=== PATIENT | female | born 1945 | race Caucasian/White ===

== ENCOUNTER → 2017-11-23 | Outpatient (CLI) | payer MEDICARE, OTHER ==
--- NOTE | 2017-11-23 13:36 | US ---
EXAMINATION TYPE: US kidneys/renal and bladder DATE OF EXAM: 11/23/2017 COMPARISON: US 07/29/2015 CLINICAL HISTORY: N39.0 FREQ URINARY TRACT INFECTIONS. EXAM MEASUREMENTS: Right Kidney: 10.2 x 3.9 x 4.2 cm Left Kidney: 11.2 x 4.9 x 4.5 cm Post Void Residual Volume: 1.65 mL Right Kidney: No hydronephrosis or masses seen Left Kidney: No hydronephrosis or masses seen Bladder: Not fully distended- patient states she feels very full and has trouble holding her bladder. Bladder wall appears thickened, however this could be due to the fact that the bladder was not fully distended at the time of the exam. Bilateral Jets seen: No, however bladder not fully distended Normal Post Void Residual: Yes There is no evidence for hydronephrosis at this point in time. No nephrolithiasis is seen. No chrissy s are identified. IMPRESSION: Apparent urinary bladder wall thickening however the bladder is not ideally distended. Correlate clin ically.
== END ==
LOC: RADUSWWP 12:06
PROVIDERS: ATTEND Urology
DX: N32.89 Other specified disorders of bladder (principal)
CPT/HCPCS: 76770

== ENCOUNTER → 2017-12-03 | Outpatient (CLI) | payer MEDICARE, OTHER ==
[2017-12-03 15:02] LABS: Basophils # (A) 0.1 k/uL (0-0.2); Basophils % (A) 1 %; Eosinophils # (A) 0.3 k/uL (0-0.7); Eosinophils % (A) 3 %; HCT 40.6 % (34.0-46.0); HGB 13.6 gm/dL (11.4-16.0); Lymphocytes # (A) 2.4 k/uL (1.0-4.8); Lymphocytes % (A) 31 %; MCH 33.4 pg (25.0-35.0); MCHC 33.4 g/dL (31.0-37.0); MCV 99.7 fL (80.0-100.0); Mean Platelet Volume 7.2; Monocytes # (A) 0.4 k/uL (0-1.0); Monocytes % (A) 6 %; Neutrophils # (A) 4.3 k/uL (1.3-7.7); Neutrophils % (A) 57 %; Platelet Count 203 k/uL (150-450); RBC 4.07 m/uL (3.80-5.40); RDW 12.1 % (11.5-15.5); WBC 7.6 k/uL (3.8-10.6)
[2017-12-03 19:00] LABS: Erythrocyte Sedimentation Rate 9 mm/hr (0-20)
== END | disposition home or self-care (01) ==
LOC: LABWHC1 14:29
PROVIDERS: ATTEND Physical Medicine & Rehabilitation
DX: M47.27 Other spondylosis with radiculopathy, lumbosacral region (principal); M51.17 Intervertebral disc disorders with radiculopathy, lumbosacral region; M43.17 Spondylolisthesis, lumbosacral region; M70.61 Trochanteric bursitis, right hip; M47.814 Spondylosis without myelopathy or radiculopathy, thoracic region
CPT/HCPCS: 36415; 85025; 85652; 86140

== ENCOUNTER → 2019-08-07 | Outpatient (CLI) | payer MEDICARE, OTHER ==
[2019-08-07 18:18] LABS: Basophils % (A) 0 %; Eosinophils # (A) 0.3 k/uL (0-0.7); Eosinophils % (A) 4 %; HCT 37.7 % (34.0-46.0); HGB 12.9 gm/dL (11.4-16.0); Lymphocytes # (A) 1.9 k/uL (1.0-4.8); Lymphocytes % (A) 27 %; MCH 34.2 pg (25.0-35.0); MCHC 34.2 g/dL (31.0-37.0); MCV 100.1 fL (80.0-100.0); Mean Platelet Volume 6.8; Monocytes # (A) 0.3 k/uL (0-1.0); Monocytes % (A) 5 %; Neutrophils # (A) 4.3 k/uL (1.3-7.7); Neutrophils % (A) 62 %; Platelet Count 155 k/uL (150-450); RBC 3.77 m/uL (3.80-5.40); RDW 12.1 % (11.5-15.5)
[2019-08-07 19:57] LABS: Erythrocyte Sedimentation Rate 11 mm/hr (0-20)
[2019-08-08 01:31] LABS: African American GFR (CKD) 84.8 (60.0-200.0); Albumin 3.9 g/dL (3.80-4.90); Albumin/Globulin Ratio 1.95 (1.60-3.17); Anion Gap 8.2 mmol/L (4.00-12.00); BUN/Creat Ratio 26.25 Ratio (12.00-20.00); C Reactive Protein 0.4 mg/dL (0.0-0.8); Calcium 8.6 mg/dL (8.7-10.3); Carbon Dioxide 25.8 mmol/L (21.6-31.8); Potassium 4.3 mmol/L (3.5-5.5); Total Bilirubin 0.6 mg/dL (0.3-1.2); Total Protein 5.9 g/dL (6.2-8.2)
[2019-08-08 01:32] LABS: Folate, Serum 12.8 ng/mL
== END | disposition home or self-care (01) ==
LOC: LABWHC1 16:47
PROVIDERS: ATTEND Nurse Practitioner Family
DX: E55.9 Vitamin D deficiency, unspecified (principal); R53.83 Other fatigue; R53.1 Weakness
CPT/HCPCS: 36415; 80053; 82150; 82306; 82607; 82746; 83690; 84439; 84443; 85025; 85652; 86140

== ENCOUNTER 2020-07-24 09:42 | Day surgery (SDC) | payer MEDICARE, OTHER ==
[2020-07-19 10:20] VITALS: BMI 28.7
[~2020-07-24 09:42] MED LIST: LACTATED RINGERS 1,000 ML IV SCH; MIDAZOLAM 2 MG/2 ML VIAL IV PRN; ONDANSETRON 4 MG/2 ML VIAL IVP PRN; fentaNYL (PF) 50 MCG/ML 2 ML AMP IV PRN; fentaNYL (PF) 50 MCG/ML 2 ML AMP IVP PRN
[2020-07-24 10:47] VITALS: TEMP 97.8
[2020-07-24] MEDS ORDERED: LIDOCAINE 1% (10MG/ML) FOR IV START INTRADERMA ONE (10:51)
[2020-07-24] MEDS ORDERED: LIDOCAINE 1% INJ 10MG/ML (20 ML MDV) ONE (11:52)
[2020-07-24] MEDS ORDERED: PROPOFOL 10 MG/ML 20 ML VIAL IV ONE (11:52)
--- NOTE | 2020-07-24 12:16 | P.PCN ---
Date of Procedure: 07/24/20 Procedure(s) Performed: Brief history: Patient is a pleasant 75-year-old pleasant white female scheduled for an elective upper endoscopy as well as colonoscopy as a part of evaluation of GERD and screening for colorectal neoplasia Procedure performed: Esophagogastroduodenoscopy Colonoscopy Preoperative diagnosis: GERD Screening for colon cancer Anesthesia: MAC Procedure: After informed consent was obtained from the patient was brought into the endoscopy unit and IV sedation was administered by anesthesia under continuous monitoring. Initially upper endoscopy was done. The Olympus GF 160 video endoscope was inserted inserted into the mouth and esophagus intubated without any difficulty and was gradually advanced into the stomach and duodenum and carefully examined. The bulb and second part of the duodenum appeared normal. The scope was then withdrawn into the stomach adequately insufflated with air and upon careful examination the antrum had mild gastritis and biopsies were done from this area. The body, cardia and fundus appeared normal. The scope was then withdrawn into the esophagus. Small hiatal hernia noted. There were 2 linear erosions noted at the GE junction that was consistent with LA grade B reflux esophagitis. . Rest of the esophagus appeared normal. Patient tolerated the procedure well. At this time the patient continued to remain sedation. Initial digital rectal examination was normal. Olympus CF 160 video colonoscope was then inserted into the rectum and gradually advanced to the cecum without any difficulty. Careful examination was performed as the scope was gradually being withdrawn. The prep was excellent. The cecum, ascending colon, transverse colon, descending colon, sigmoid colon and rectum appeared normal. Diffuse diverticula cyst noted throughout the entire Retroflexion was performed in the rectum and no lesions were noted. Patient tolerated the procedure well. Impression: 1. Upper endoscopy revealed small sliding Hiatal hernia, LA grade B reflux esophagitis and mild gastritis 2. Colonoscopy revealed diffuse diverticulosis throughout the entire colon but no evidence of colorectal neoplasia Recommendations: Findings of this examination were discussed with the patient as well as her family. She was advised to follow with the biopsy results. She was advised to start on Prilosec 20 mg daily and follow antireflux measures. She will be seen in office in 3 months
[2020-07-24 12:20] VITALS: PULSE 67
[2020-07-24 12:47] VITALS: BP 145/84; RESP 20
== END 2020-07-24 13:07 | disposition home or self-care (01) ==
LOC: ORWHC2ENDO 09:42
PROVIDERS: ATTEND Internal Medicine Gastroenterology
DX: Z12.11 Encounter for screening for malignant neoplasm of colon (principal); K57.30 Diverticulosis of large intestine without perforation or abscess without bleeding; K29.50 Unspecified chronic gastritis without bleeding; K44.9 Diaphragmatic hernia without obstruction or gangrene; K22.10 Ulcer of esophagus without bleeding; K21.0 Gastro-esophageal reflux disease with esophagitis; I10 Essential (primary) hypertension; G47.33 Obstructive sleep apnea (adult) (pediatric); K85.90 Acute pancreatitis without necrosis or infection, unspecified; Z88.2 Allergy status to sulfonamides; Z99.89 Dependence on other enabling machines and devices; Z79.899 Other long term (current) drug therapy; Z79.1 Long term (current) use of non-steroidal anti-inflammatories (NSAID); Z90.49 Acquired absence of other specified parts of digestive tract
CPT/HCPCS: 88305; 43239; J2001; J2704; G0121; 45378

== ENCOUNTER → 2021-04-15 | Outpatient (CLI) | payer MEDICARE ==
[2021-04-15 09:16] LABS: HGB 14.6 gm/dL (11.4-16.0); MCH 32.6 pg (25.0-35.0); MCHC 33.1 g/dL (31.0-37.0); MCV 98.6 fL (80.0-100.0); Mean Platelet Volume 7.4; Platelet Count 189 k/uL (150-450); RBC 4.47 m/uL (3.80-5.40); WBC 7.9 k/uL (3.8-10.6)
[2021-04-15 10:33] LABS: Erythrocyte Sedimentation Rate 8 mm/hr (0-20)
== END | disposition home or self-care (01) ==
LOC: LABWHC1 07:58
PROVIDERS: ATTEND Ophthalmology
DX: G45.3 Amaurosis fugax (principal); M31.6 Other giant cell arteritis
CPT/HCPCS: 36415; 85027; 85652; 86140

== ENCOUNTER → 2021-07-09 | Outpatient (CLI) | payer MEDICARE ==
[2021-07-10 02:28] LABS: African American GFR (CKD) 72.5 (60.0-200.0); Anion Gap 11.4 mmol/L (4.00-12.00); BUN/Creat Ratio 22.22 Ratio (12.00-20.00); Calcium 9.5 mg/dL (8.7-10.3); Carbon Dioxide 24.6 mmol/L (21.6-31.8); Non-African American GFR(CKD) 62.5 (60.0-200.0); Potassium 4.2 mmol/L (3.5-5.5)
== END | disposition home or self-care (01) ==
LOC: LABWHC1 13:11
PROVIDERS: ATTEND Internal Medicine Interventional Cardiology
DX: I10 Essential (primary) hypertension (principal)
CPT/HCPCS: 36415; 80048

== ENCOUNTER → 2021-08-19 | Outpatient (CLI) | payer MEDICARE ==
[2021-08-19 18:27] LABS: Chol/HDL Ratio 5.05 Ratio; HDL Cholesterol 36.6 mg/dL (40.00-60.00); LDL Cholesterol,Calculated 114.2 mg/dL (0.0-131.0); VLDL Calculation 34.2 mg/dL (5.00-40.00)
== END | disposition home or self-care (01) ==
LOC: LABWHC1 09:53
PROVIDERS: ATTEND Internal Medicine Interventional Cardiology
DX: E78.5 Hyperlipidemia, unspecified (principal)
CPT/HCPCS: 36415; 80061; 84450; 84460

== ENCOUNTER → 2021-09-08 | Outpatient (CLI) | payer MEDICARE, OTHER ==
[2021-09-08 21:06] LABS: Chol/HDL Ratio 3.22 Ratio; HDL Cholesterol 39.8 mg/dL (40.00-60.00); VLDL Calculation 34.2 mg/dL (5.00-40.00)
== END | disposition home or self-care (01) ==
LOC: LABWHC1 09:42
PROVIDERS: ATTEND Nurse Practitioner
DX: E78.00 Pure hypercholesterolemia, unspecified (principal)
CPT/HCPCS: 36415; 80061

== ENCOUNTER → 2021-10-16 | Outpatient (CLI) | payer MEDICARE, OTHER ==
--- NOTE | 2021-10-16 15:53 | US ---
EXAMINATION TYPE: US kidneys/renal and bladder DATE OF EXAM: 10/16/2021 COMPARISON: NONE CLINICAL HISTORY: 76-year-old female I10 Essential Hypertension. HTN, History of UTI no current sympt oms TECHNIQUE: Multiple sonographic images of the kidneys and bladder are obtained. FINDINGS: EXAM MEASUREMENTS: Right Kidney: 11.6 x 6.1 x 5.3 cm Left Kidney: 11.5 x 4.9 x 4.8 cm No hydronephrosis. Bladder: Underdistention of the bladder limits its evaluation. Bilateral Jets seen: Yes IMPRESSION: No hydronephrosis.
== END | disposition home or self-care (01) ==
LOC: RADUSWWP 10:58
PROVIDERS: ATTEND Internal Medicine Interventional Cardiology
DX: I10 Essential (primary) hypertension (principal); Z87.440 Personal history of urinary (tract) infections
CPT/HCPCS: 76770

== ENCOUNTER → 2021-10-22 | Outpatient (CLI) | payer MEDICARE, OTHER ==
[2021-10-22 16:47] LABS: Blood Urea Nitrogen 13.5 mg/dL (9.0-27.0); Calcium 8.8 mg/dL (8.7-10.3); Carbon Dioxide 25.7 mmol/L (20.0-27.5); Chloride 106 mmol/L (96-109); Chol/HDL Ratio 2.87 Ratio; Glucose 93 mg/dL (70-110); Non-African American GFR(CKD) 75.9 (60.0-200.0); Potassium 4.1 mmol/L (3.5-5.5); Sodium 141 mmol/L (135-145)
== END | disposition home or self-care (01) ==
LOC: LABWHC1 08:37
PROVIDERS: ATTEND Nurse Practitioner
DX: I10 Essential (primary) hypertension (principal); E78.5 Hyperlipidemia, unspecified
CPT/HCPCS: 36415; 80048; 80061

== ENCOUNTER → 2022-01-12 | Outpatient (CLI) | payer MEDICARE, OTHER ==
--- NOTE | 2022-01-12 10:59 | CT ---
EXAMINATION TYPE: CT chest wo con DATE OF EXAM: 01/12/2022 COMPARISON: Chest radiograph 07/29/2015 HISTORY: 77-year-old female R06.2, wheezing TECHNIQUE: Contiguous axial scanning of the chest without IV contrast. Coronal and sagittal reconstru ctions performed. CT DLP: 712 mGycm Automated exposure control for dose reduction was used. FINDINGS: Heart normal size without pericardial effusion. Mild atherosclerotic arch calcifications with conventional branching anatomy. No thoracic lymphadenopathy by CT size criteria. Normal variant azygos fissure. Some minimal strandy atelectasis in the lower lungs. No consolidation or pleural effusion. Tiny hiatal hernia. Visualized upper abdomen shows cholecystectomy clips and scattered mild to moder ate atherosclerotic calcifications along with colonic diverticulosis. Bones: Old left posterior fracture deformities. Moderate to advanced degenerative disc disease mid to lower thoracic spine. Anterior wedging T7 age indeterminate but new from 07/29/2015 chest radiograph. Suspected chronic injury given the lack of any paravertebral soft tissue swelling. IMPRESSION: 1. Normal variant azygous fissure. Minimal strandy atelectasis in the lower lungs. No acute pulmonary process seen. 2. Tiny hiatal hernia and colonic diverticulosis incidentally noted in the upper abdomen. 3. Moderately advanced degenerative disc disease. Anterior wedge deformity of T7 is new from 2015 but still suspected to be chronic. Clinically correlate.
== END ==
LOC: RADCTMAIN 09:44
PROVIDERS: ATTEND Internal Medicine Pulmonary Disease
DX: J98.11 Atelectasis (principal); K44.9 Diaphragmatic hernia without obstruction or gangrene; K57.30 Diverticulosis of large intestine without perforation or abscess without bleeding
CPT/HCPCS: 71250

== ENCOUNTER → 2022-04-15 | Outpatient (CLI) | payer MEDICARE, OTHER ==
[2022-04-15 13:17] VITALS: BP 144/79; PULSE 72; RESP 14; TEMP 98.2
--- NOTE | 2022-04-15 13:19 | P.PAINPG ---
Objective - Vital Signs Vital signs: Intake & Output 04/14/22 04/15/22 04/15/22 18:59 06:59 18:59 Weight 90.718 kg PQRS Measure Charge Sheet Comment: HISTORY OF PRESENT ILLNESS: 77 yr old female as a referral from Dr. Crockett presents today with severe and chronic LBP secondary to spondylosis, scoliosis, spinal stenosis, disc bulges and facet arthropathy for evaluation. Pt states her pain level is 7/10 in intensity, sharp, shooting from the lower aspect of her lumbar spine to the bilateral lower extremities. Pain is provoked with standing from a sitting position or walking for periods of 15 minutes or more. Pain is relieved with medications (ibuprofen, Lyons), topicals, history of LESIs RFA in the past, ice and heat daily, physical therapy over 1 year ago, massage therapy once a month, repositioning and laying supine. Past Medical History: GERD, HTN, OA, MVP, MDD/ Anxiety Past Surgical History: Appendectomy, Bowel Resection, Cholecystectomy, Hysterectomy, BL Knee Arthroscopy x 2, BL Knee Surgery x 2 Social History: Negative x 3. Family History: Mother- DM. Father- CHF, [place]. All: Sulfa Meds: See list REVIEW OF ORGAN SYSTEMS: CONSTITUTIONAL: No fevers or chills. No recent weight loss. HEENT: No visual acuity loss, eye pain, difficulties with hearing. No nosebleeds. No difficulty swallowing. RESPIRATORY: Denies any troubles with breathing or dyspnea on exertion. CARDIOVASCULAR: Denies any chest pain, palpitations, or recent heart attacks. GASTROINTESTINAL: Denies fatty food intolerance. Has change in bowel habits and gas bloat. GENITOURINARY: Denies any blood in urine. Has increased urinary frequency. NEUROLOGICAL: + numbness and tingling along the distal extremities. No seizure disorders or headaches. MUSCULOSKELETAL: + back pain SKIN: No skin cancer. No rash. PSYCHIATRIC: Denies current depression or suicidal thoughts. ENDOCRINE: Denies current thyroid disorders. Denies any blood sugar glucose intolerance. HEME/LYMPHATIC: Denies any lumps and bumps around the neck. History of deep venous thrombosis. ALLERGY/IMMUNOLOGY: No immunoglobulin therapy. No immune deficiencies. BREAST: Denies current breast lumps, pain or nipple discharge. Physical Examinations : Constitutional : Cooperative , not in acute distress . HEENT: Neck supple. No Lymphadenopathy. Normal thyroid size . Eyes no ptosis , no icterus, no photophobia . Hearing intact. Normal oropharynx. No Thrush. Respiratory : Chest clear to auscultations bilaterally. No wheezing. No rhonchi. Cardiovascular : Regular rate and rhythm , S1 / S2. No S3 . No S4. Gastrointestinal : Abdomen soft. No tenderness. Bowel sounds x 4. No organomegaly . Genitourinary : Deferred. Neurologic : Cranial nerve II to XII intact. No focal neurological deficits. Psychiatric : alert & oriented x 3. Matching mood & appropriate affect. Judgment & insight intact. Lymphatic No Lymphadenopathy. Musculoskeletal : Cervical Spine Motor strength in the deltoid and biceps: Normal right side. Normal Left side Motor strength biceps and the wrist extensors: Normal right side . Normal left side Motor strength in the triceps muscle: Normal right side. Normal left side Deep tendon reflexes: Normal at the biceps. Normal at Brachioradialis. Normal at triceps Cervical facet loading test: positive bilaterally Spurling test: positive bilaterally Neck distraction test: positive bilaterally [place] sign: positive bilaterally Lumbar spine Motor strength lower extremities ,thigh and legs 5/5 Right side , 5/5 Left side Deep tendon reflexes : Normal Knee Jerk. Normal Ankle Jerk Vertebral body tenderness over Lumbar facet Loading Test: positive Right / positive Left with jump reflex Range of motion of the lumbar spine Flexion 30 degrees, extension 10 degrees Straight Leg Raise test: Left/ Right positive at degree Efrain test: positive right / positive left. Severe tenderness over the Sacroiliac joint on the Right / Left sides Gaenslen test: positive bilaterally Seated flexion test: positive bilaterally. Sacral spine : Severe tenderness over the Sacroiliac joint: right side / left side Range of motion: Flexion of the lumbar spine <60 degrees Range of motion: Extension of the lumbar spine <20 degrees Gaenslen's Test positive Ger's Test positive Efrain test: positive right side / left side Thigh Thrust Test Sacral Thrust Test Imaging: MRI without contrast of the lumbar spine from 02/25/22 reviewed Assessment/ Plan : Lumbar level scoliosis, lumbar stenosis, lumbar facet arthropathy Recommendation of BL RFA L4- L5, L5-S1. We will obtain records of prior RFA from [facility] when the procedure was performed by Dr Whatley. Risks, benefits of procedure discussed and patient verbalized understanding. Denies aspirin or anti- coagulant use or medical history of diabetes. All questions answered. I have spent greater than 50 minutes on patient care today. Dr Sorto was available by phone for the evaluation of this patient. The time was used to review the medical records including relevant urine studies and Prescription history (MAPs), review of the available imaging, evaluation and examination of the patient, coordination of care with the medical staff and if applicable referring physicians, as well as creation of the medical record PQRS Narrative: Smoking Status Never smoker Pain Intensity [Lower Back] 9 Scale Used Numeric (1 - 10) Hx Alcohol Use (MH) Yes Home Medications: Ambulatory Orders Metoprolol Tartrate [Lopressor] 25 mg PO BID 07/19/20 Atorvastatin [Lipitor] 10 mg PO DAILY 04/14/22 DULoxetine HCL [Cymbalta] 60 mg PO DAILY 04/14/22 Losartan Potassium 100 mg PO DAILY 04/14/22 Sertraline HCl [Zoloft] 150 mg PO DAILY 04/14/22 hydrALAZINE HCL 50 mg PO BID 04/14/22 Controlled Substance Measures - Controlled Substance Measures Is patient prescribed a controlled substance at discharge?: No
== END ==
LOC: PNWHC3 12:45
PROVIDERS: ATTEND Specialist
DX: M51.36 Other intervertebral disc degeneration, lumbar region (principal); M51.26 Other intervertebral disc displacement, lumbar region; M41.9 Scoliosis, unspecified; M48.062 Spinal stenosis, lumbar region with neurogenic claudication; M47.816 Spondylosis without myelopathy or radiculopathy, lumbar region; I10 Essential (primary) hypertension; M19.90 Unspecified osteoarthritis, unspecified site; F41.9 Anxiety disorder, unspecified; Z88.2 Allergy status to sulfonamides
CPT/HCPCS: 99211

== ENCOUNTER → 2022-05-08 | Outpatient (CLI) | payer MEDICARE, OTHER ==
[2022-05-08 14:48] LABS: Basophils # (A) 0.03 X 10*3/uL (0.00-0.10); Basophils % (A) 0.3 %; Eosinophils # (A) 0.23 X 10*3/uL (0.04-0.35); Eosinophils % (A) 2.4 %; HCT 36.1 % (37.2-46.3); HGB 11.3 g/dL (12.0-15.0); Immature Grans, Automated 0.4 %; Lymphocytes # (A) 1.39 X 10*3/uL (0.90-5.00); Lymphocytes % (A) 14.5 %; MCH 31.6 pg (27.0-32.0); MCHC 31.3 g/dL (32.0-37.0); MCV 100.8 fL (80.0-97.0); Mean Platelet Volume 9.7 fL (9.5-12.2); Monocytes # (A) 0.77 X 10*3/uL (0.20-1.00); Monocytes % (A) 8.1 %; NRBC Per 100 WBC 0 /100 WBCS (0.0-0.0); Neutrophils % (A) 74.3 %; Platelet Count 208 X 10*3/uL (140-440); RBC 3.58 X 10*6/uL (4.10-5.20); RDW 12.7 % (11.5-14.5); WBC 9.56 X 10*3/uL (4.50-10.00)
[2022-05-08 14:53] LABS: Erythrocyte Sedimentation Rate 15 mm/Hr (0-30)
[2022-05-08 17:22] LABS: Rheumatoid Factor, Qnt <10 IU/mL (0-15)
[2022-05-08 17:28] LABS: ALT 19 U/L (8-44); AST 22 U/L (13-35); African American GFR (CKD) 97.5 (60.0-200.0); Albumin 3.8 g/dL (3.8-4.9); Albumin/Globulin Ratio 1.58 (1.60-3.17); Alkaline Phosphatase 110 U/L (41-126); BUN/Creat Ratio 21.43 Ratio (12.00-20.00); Calcium 8.9 mg/dL (8.7-10.3); Carbon Dioxide 24.4 mmol/L (20.0-27.5); Chloride 102 mmol/L (96-109); Creatine Kinase 66 U/L (26-186); Globulin 2.4 g/dL (1.6-3.3); Glucose 96 mg/dL (70-110); Non-African American GFR(CKD) 84.2 (60.0-200.0); Potassium 4.3 mmol/L (3.5-5.5); Sodium 137 mmol/L (135-145); Total Protein 6.2 g/dL (6.2-8.2); Uric Acid 3.5 mg/dL (2.9-7.7)
[2022-05-09 11:07] LABS: HLA B27 NEGATIVE
[2022-05-11 14:41] LABS: Lyme IgG/IgM 0.04 Index
== END | disposition home or self-care (01) ==
LOC: LABWHC1 09:53
PROVIDERS: ATTEND Family Medicine
DX: M79.7 Fibromyalgia (principal); M43.16 Spondylolisthesis, lumbar region; M43.10 Spondylolisthesis, site unspecified; N39.498 Other specified urinary incontinence
CPT/HCPCS: 36415; 80053; 82550; 84443; 84550; 85025; 85652; 86038; 86140; 86431; 86618; 86812

== ENCOUNTER 2022-05-15 06:04 | Day surgery (SDC) | payer MEDICARE, OTHER ==
[2022-05-13 16:32] VITALS: BMI 28.7
[2022-05-15] MEDS ORDERED: LACTATED RINGERS 1,000 ML IV ONE ×2 (07:00)
[2022-05-15 07:01] VITALS: TEMP 98.2
[2022-05-15] MEDS ORDERED: ROPIVACAINE 5MG/ML 20ML VIAL ONE (07:07)
[2022-05-15] MEDS ORDERED: TRIAMCINOLONE ACETONIDE 40 MG/ML 1 ML VIAL ONE (07:07)
[2022-05-15] MEDS ORDERED: fentaNYL (PF) 50 MCG/ML 2 ML AMP ONE (07:07)
[2022-05-15] MEDS ORDERED: MIDAZOLAM 2 MG/2 ML VIAL ONE (07:07)
[2022-05-15] MEDS ORDERED: LACTATED RINGERS 1,000 ML IV SCH (07:15)
--- NOTE | 2022-05-15 07:32 | P.PCN ---
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 Procedure: Right side L4-5 radiofrequency thermocoagulation of medial branch under fluoroscopic guidance right side L5-S1 dorsal ramus radiofrequency th ermocoagulation under fluoroscopic guidance Surgeon: Melecio Dempsey Anesthesia: Local: 1% Lidocaine, IV sedation : Midazolam 2 mg, and fentanyl 100 micrograms. Complications: None Estimated blood loss: None. Specimen removed: None Fluoroscopic image: Saved to patient electronic medical records. Indications for Procedure: The patient is well known to pain clinic for his chronic low back pain management. The lumbar facet loading test was positive with a clinical diagnosis of lumbar facet arthropathy. Patient had marked decrease in pain after the diagnostic medial branch procedure. Came here for radiofrequency ablation for longer pain relief. PROCEDURE DESCRIPTION: The patient was seen and identified in the preoperative area. Risks, benefits, complications, and alternatives were discussed with the patient. The patient agreed to proceed with the procedure and signed the consent. IV was started. Vital signs were stable. Patient was taken to the procedure room and timeout was completed. The patient was placed in the prone position on procedure table and a pillow was placed under the abdomen to reduce lumbar lordosis. The lumbosacral area was prepped and draped in the usual sterile fashion. Critical pause was taken. Vital signs were closely monitored during the procedure. The fluoroscopic camera was placed in the anteroposterior position to identify the junction of superior articular process and its corresponding injection with its transverse process of L4, L5, S1, which were anesthetized with 1% lidocaine. We used 18-gauge 100-mm curved, sharp radiofrequency cannula with 10- mm active tip for the procedure. The first cannula was guided by fluoroscopy to the S1 superior articular process and its corresponding junction with its ala. The second cannula was guided by fluoroscopy into the L5 superior articular process and its corresponding junction with its transverse process and pedicle. The third cannula was guided by fluoroscopy into the L4 SAP and its corresponding junction with its transverse process and its pedicle. After confirmation of needle tip position on oblique view, , and lateral view each site underwent motor testing at 2 Hz and 0 to 2.5 volts, and there was good motor stimulation in the back and no radicular symptoms or paresthesias. After confirmation of motor testing, 0.5 mL of block solution injected at each site . Block solution contained 3 mL of 0.5% ropivacaine preservative free mixed with 40 MG of Kenalog. At this time, each site was ablated using continuous radiofrequency mode at 80 degrees Celsius for 90 seconds at each level. At the end of the procedure, each needle was retracted approximately 1 cm and the skin was infiltrated with 0.5% ropivacaine preservative free 1 ml at each site. Skin was cleansed and bandages were applied. Disposition : The patient tolerated the procedure very well. The patient was transferred to the recovery room and remained stable until discharged home. The patient was given detailed discharge instructions for infection, bleeding, and increased pain at the injection site, and was advised to seek immediate medical attention should significant side effects develop. The patient will be scheduled with Pain Clinic within 4 weeks.
[2022-05-15] MEDS ORDERED: IV FLUID CONTINUATION 1,000 ML IV ONE (07:35)
--- NOTE | 2022-05-15 07:56 | FL ---
Intraoperative/procedural fluoroscopic services were provided. Total fluoroscopy time is 7 seconds wi th a total of 4 submitted images to PACS. Please see the operative/procedural note for further detail s.
[2022-05-15 07:57] VITALS: BP 124/73; PULSE 75; RESP 18
== END 2022-05-15 08:15 | disposition home or self-care (01) ==
LOC: ORPAIN 06:04
DX: M47.816 Spondylosis without myelopathy or radiculopathy, lumbar region (principal); G89.29 Other chronic pain; Z88.2 Allergy status to sulfonamides; I10 Essential (primary) hypertension; E78.00 Pure hypercholesterolemia, unspecified; G47.33 Obstructive sleep apnea (adult) (pediatric); K21.9 Gastro-esophageal reflux disease without esophagitis; E78.5 Hyperlipidemia, unspecified; Z79.899 Other long term (current) drug therapy; Z83.3 Family history of diabetes mellitus; Z82.49 Family history of ischemic heart disease and other diseases of the circulatory system; Z80.8 Family history of malignant neoplasm of other organs or systems
CPT/HCPCS: 64635; 64636; J2250; J3301; J3010; J2795

== ENCOUNTER → 2023-08-31 | Day surgery (SDC) | payer MEDICARE, OTHER ==
[2023-08-27 13:59] VITALS: BMI 29.0
[~2023-08-31] MED LIST changes: +LIDOCAINE 1% (10MG/ML) FOR IV START INTRADERMA PRN; -MIDAZOLAM 2 MG/2 ML VIAL IV PRN; -ONDANSETRON 4 MG/2 ML VIAL IVP PRN; +PROPOFOL 10 MG/ML 20 ML VIAL IV ONE; -fentaNYL (PF) 50 MCG/ML 2 ML AMP IV PRN; -fentaNYL (PF) 50 MCG/ML 2 ML AMP IVP PRN
[2023-08-31 07:41] VITALS: TEMP 96.8
--- NOTE | 2023-08-31 08:16 | P.PCN ---
Date of Procedure: 08/31/23 Procedure(s) Performed: BRIEF HISTORY: Patient is a 78-year-old pleasant white female scheduled for an elective colonoscopy as a part of screening for colon cancer. PROCEDURE PERFORMED: Colonoscopy With snare polypectomy PREOPERATIVE DIAGNOSIS: Screening for colon cancer. IV sedation per Anesthesia. PROCEDURE: After informed consent was obtained, the patient, was brought into the endoscopy unit. IV sedation was administered by Anesthesia under continuous monitoring. Digital rectal examination was normal. Initially the Olympus CF-160 flexible video colonoscope was then inserted in the rectum, gradually advanced into the cecum without any difficulty. Careful examination was performed as the scope was gradually being withdrawn. Ileocecal valve and the appendiceal orifice were visualized and appeared normal. Prep was excellent. Mucosa of the cecum, ascending colon, transverse colon, descending colon, sigmoid colon, and rectum appeared normal. In the rectum there was a 5mm polyp that was removed by snare polypectomy. Scattered diffuse diverticula seen. Retroflexion was performed in the rectum and no lesions were seen. The patient tolerated the procedure well. IMPRESSION: 5 mm rectal polyp status post cold snare polypectomy Diffuse scattered diverticulosis RECOMMENDATIONS: Findings of this examination were discussed with the patient as well as her family. She was advised to follow with the biopsy results. If the biopsy result she can have a repeat colonoscopy in 5 years.
[2023-08-31 08:49] VITALS: BP 140/68; PULSE 52; RESP 14
== END ==
LOC: ORWHC2ENDO 06:41
PROVIDERS: ATTEND Internal Medicine Gastroenterology
DX: Z12.11 Encounter for screening for malignant neoplasm of colon (principal); D12.8 Benign neoplasm of rectum; K57.30 Diverticulosis of large intestine without perforation or abscess without bleeding; I10 Essential (primary) hypertension; E78.5 Hyperlipidemia, unspecified; I34.1 Nonrheumatic mitral (valve) prolapse; F41.9 Anxiety disorder, unspecified; M79.10 Myalgia, unspecified site; K21.9 Gastro-esophageal reflux disease without esophagitis; Z79.83 Long term (current) use of bisphosphonates; Z79.891 Long term (current) use of opiate analgesic; Z79.899 Other long term (current) drug therapy; Z98.890 Other specified postprocedural states
CPT/HCPCS: 88305; 45385; J2704

== ENCOUNTER → 2024-04-11 | Outpatient (CLI) | payer MEDICARE, OTHER ==
[2024-04-11 15:15] LABS: C Reactive Protein <0.30 mg/dL (0.00-0.80); Chol/HDL Ratio 2.22 Ratio; LDL Cholesterol,Calculated 49.7 mg/dL (0.0-131.0)
== END | disposition home or self-care (01) ==
LOC: LABWHC1 11:09
PROVIDERS: ATTEND Internal Medicine Interventional Cardiology
DX: G45.3 Amaurosis fugax (principal); G43.B0 Ophthalmoplegic migraine, not intractable
CPT/HCPCS: 36415; 80061; 85652; 86140

== ENCOUNTER → 2024-05-10 | Outpatient (CLI) | payer MEDICARE, OTHER ==
--- NOTE | 2024-05-11 11:38 | XR ---
EXAMINATION TYPE: XR ribs LT DATE OF EXAM: 05/10/2024 COMPARISON: 07/29/2015 HISTORY: 79-year-old female S20.212A CONTUSION RIBS LEFT SIDE TECHNIQUE: 4 views FINDINGS: Normal variant azygous fissure. Patchy interstitial changes are present in the left lung. P ossible trace left effusion. No displaced left rib fractures seen. However, there is some irregularit y of the left posterior seventh and eighth ribs. IMPRESSION: 1. Some cortical irregularity of the left posterior seventh and eighth ribs suggests age indeterminat e nondisplaced fractures. Correlate for any point tenderness. No displaced rib fracture seen. 2. Patchy interstitial opacities in the left lung with possible trace left effusion. Correlate to exc lude any underlying infectious/inflammatory etiology or interstitial edema.
== END | disposition home or self-care (01) ==
LOC: RADXRMAIN 14:49
PROVIDERS: ATTEND Family Medicine
DX: S20.212A Contusion of left front wall of thorax, initial encounter (principal)

== ENCOUNTER → 2024-07-13 | Outpatient (CLI) | payer MEDICARE, OTHER ==
[2024-07-13 15:58] VITALS: BP 164/80; PULSE 57; RESP 16; TEMP 97.9
--- NOTE | 2024-07-13 16:49 | P.SLEEP ---
History of Present Illness DATE: 07/13/2024 CONSULTATION/NEW PATIENT EVALUATION HISTORY OF PRESENT ILLNESS/SLEEP-WAKE EVALUATION: 79-year-old lady had been e valuated in the sleep center for possible obstructive sleep apnea hypopnea syndrome. Patient has history of obstructive sleep apnea first diagnosed about 10 years ago. Patient was on treatment with CPAP and about 2 years ago stopped treatment, presently using oxygen at night 2 L/min. SLEEP SCHEDULE: Usually sleep schedule from around 10 PM to 5 AM. FALLING ASLEEP: Patient has difficulties with the falling asleep, using Xanax at bedtime to help falling asleep. DURING SLEEP: Presently patient is on oxygen supplement 2 L/min. She sleeps by herself, so she does not know about snoring at the present time. She wakes up about 3 times from sleep and has difficulties to initiate sleep again. Positive history of nocturia, grinding teeth, dry mouth, episodes of palpitation, sweating, restless leg symptoms no history of hypnogogical hallucinations, sleep paralysis, or cataplexy. DURING THE DAY/WAKE STATE: In the morning patient wake up tired, has difficulties to pay attention, falling asleep during the day, has problems with memory, concentration, irritability, depression. [place] sleepiness scale is increased to 10. Patient may take up to 3 naps a day. PAST MEDICAL HISTORY: Hypertension, mitral valve prolapse, arthritis, acid reflux. PAST SURGICAL HISTORY: Surgical treatment for basal cell carcinoma of the skin, gastric resection, others please see below. MEDICATIONS: Please see below. SOCIAL HISTORY: Please see below. FAMILY HISTORY: Heart problems, diabetes, acid reflux. REVIEW OF SYSTEMS: Multiple awakenings from sleep, sleepiness during the day. No fevers. No double vision. No recent chest pain. No shortness of breath. No abdominal pain. No bleeding episodes. No blood in urine. No seizure episodes. PHYSICAL EXAMINATION: GENERAL: A pleasant patient without any distress. VITAL SIGNS: Please see below. HEENT: PERRLA, EOMI. Evaluation of oropharynx showed tongue protrudes midline, low position of soft palate Mallampati 2, but short distance between soft palate and posterior pharyngeal wall. NECK: Supple. No JVD. Thyroid is not palpable. 15.5 inches in circumference. LUNGS: Clear to percussion and to auscultation. Good air exchange. No wheezing or rhonchi. HEART: S1, S2 regular. No murmurs, gallops or rubs. ABDOMEN: Soft and nontender. Bowel sounds are present. No organomegaly appreciated. EXTREMITIES: No clubbing or cyanosis. DISULFURIZER TENDER: Awake, alert, and oriented x3. Cranial nerves 2 to 7 intact. There is no fasciculation or atrophy noted. No focal deficits observed. ASSESSMENT: 1. Multiple awakenings from sleep, short distance between soft palate and posterior pharyngeal wall, episodes of choking, sleepiness during the day with [place] Sleepiness Scale 10, history of obstructive sleep apnea in the past. Obstructive sleep apnea hypopnea syndrome. 2. Hypertension. 3. Hyperlipidemia. 4. Mitral valve prolapse. 5 acid reflux. 6 . Restless leg symptoms. 7. Arthritis. 8. Mild obesity, BMI's index 32.7. 9 . Insomnia with difficulties to initiate sleep. 10. Status post gastric resection in 2000. 11. Status post knee replacement. 12. Status post shoulder surgery. PLAN: 1. Polysomnography for evaluation of patient's breathing during sleep. 2. Following plan after reading sleep study. 3. Preferable position during sleep on the side. 4. No driving if patient feels any sleepiness. Patient is aware of civil and criminal liability for unsafe driving. 5. Sleep hygiene with regular sleep time for at least 7.5-8 hours. 6. Watching weight. Thank you very much for referring this patient for consultation. Sincerely, Dima Ball MD, PhD, FAASM. Diplomat of [place] [employer], Sleep Medicine Board by [place] [employer] [place] [employer] [facility] [place] cc: Blake Gutierres MD, Brian Mantilla MD Past Medical History Past Medical History: Cancer, GERD/Reflux, Hyperlipidemia, Hypertension, Mitral Valve Prolapse (MVP), Sleep Apnea/CPAP/BIPAP Additional Past Medical History / Comment(s): Occasional irregular heart beat, skin cancer, back pain, Hx of diverticulosis with bowel resection, , uses 2L of O2 at night, hx pancreatitis, states urgency with bowel/bladder movements, varicose veins. polymyalgia, firbromyalgia, rheumatoid arthritis, insomnia, ulcers, mitral valve prolaspe, restless legs and body. History of Any Multi-Drug Resistant Organisms: None Reported Past Surgical History: Appendectomy, Bowel Resection, Cholecystectomy, Hysterectomy, Joint Replacement, Orthopedic Surgery Additional Past Surgical History / Comment(s): BILATERAL KNEE ARTHROSCOPY X2 AND OPEN X2, LEFT TOTAL KNEE REPLACEMENT.scraped cornea, and cataract surgery, gastric resection, bilateral shoulder surgery, l thumb joint replaced, and ruptured tendon - r hand. Past Anesthesia/Blood Transfusion Reactions: Family History of Problems w/ Anesthesia Additional Past Anesthesia/Blood Transfusion Reaction / Comment(s): MOTHER - PONV. no blood transfusion Past Psychological History: Anxiety, Depression Additional Psychological History / Comment(s): "Mild depression". Smoking Status: Never smoker Past Alcohol Use History: Occasional Past Drug Use History: Marijuana Additional Drug Use History / Comment(s): OCCASIONAL CBD OIL, "NONE IN QUITE A WHILE, DIDN'T WORK FOR ME".has not done for a year - Past Family History Mother Family Medical History: Diabetes Mellitus, Hyperlipidemia Additional Family Medical History / Comment(s): acid reflux Father Family Medical History: Cancer, Congestive Heart Failure (CHF), GERD/Reflux, Hyperlipidemia, Hypertension, Myocardial Infarction (FL) Additional Family Medical History / Comment(s): SKIN CANCER, angina, snoring, (brother had [place] also), Medications and Allergies Home Medications Medication Instructions Recorded Confirmed Type Metoprolol Tartrate [Lopressor] 25 mg PO BID 07/19/20 07/13/24 History Atorvastatin [Lipitor] 10 mg PO HS 04/14/22 07/13/24 History Losartan Potassium 50 mg PO DAILY 04/14/22 07/13/24 History hydrALAZINE HCL 50 mg PO BID 04/14/22 08/27/23 History HYDROcodone/APAP 10-325MG [Vinson 1 tab PO BID PRN 05/13/22 08/27/23 History 10-325] HYDROcodone/APAP 5-325MG [Vinson 1 tab PO DIRECTED PRN 05/13/22 08/27/23 History 5-325] HYDROcodone/APAP 7.5-325MG [Vinson 1 tab PO DIRECTED PRN 05/13/22 08/27/23 History 7.5-325] Cholecalciferol (Vitamin D3) 1 tab PO DAILY 08/27/23 08/27/23 History [Vitamin D3] Sertraline HCl 200 mg PO DAILY 08/27/23 08/27/23 History Vitamin B Complex 1 tab PO DAILY 08/27/23 08/27/23 History Zolpidem [Ambien] 5 mg PO HS PRN 08/27/23 08/27/23 History ALPRAZolam [Xanax] 0.5 mg PO DIRECTED PRN 07/13/24 07/13/24 History ARIPiprazole [Abilify] 10 mg PO DAILY 07/13/24 07/13/24 History Sertraline [Zoloft] 200 mg PO DAILY 07/13/24 07/13/24 History Allergies Allergy/AdvReac Type Severity Reaction Status Date / Time Sulfa (Sulfonamide Allergy Unknown Verified 08/31/23 07:08 Antibiotics) Childhood Physical Exam Vitals: Vital Signs Temp Pulse Resp BP Pulse Ox 07/13/24 15:54 97.9 F 57 L 16 164/80 57 L Intake and Output 07/13/24 07/13/24 07/13/24 06:59 14:59 22:59 Other: Weight 94.007 kg Sleep Note - Sleep Data ESS Total: 10 - Sleep Note Sleep Note: Temperature: 97.9 F Pulse Rate: 57 Respiratory Rate: 16 Blood Pressure: 164/80 SpO2: 57 Height: 5 ft 6.7 in Weight: 94.007 kg BMI: Neck Circumference: 15.5
== END ==
LOC: 3 N SLEEP 15:02
PROVIDERS: ATTEND Internal Medicine
CPT/HCPCS: 99211

== ENCOUNTER 2024-07-20 19:24 | Outpatient (CLI) | payer MEDICARE, OTHER ==
--- NOTE | 2024-07-26 15:58 | P.PCN ---
Description of Procedure: POLYSOMNOGRAPHY REPORT PROCEDURE(S)/DATE(S): Polysomnography 07/20/2024 CLINICAL: Patient has been seen in the sleep center for evaluation of obstructive sleep apnea-hypopnea syndrome. Please see my consultation. Sleep study has been done for evaluation of patient breathing during the sleep. PROCEDURE: The standard montage for clinical polysomnography included the electroencephalogram, the electrooculogram, the mentalis surface electromyography and Lead II cardiography. The respiratory battery consisted of measurements of nasal/buccal air flow, pressure transducer measurements from nose, thoracic and/or abdominal effort and intercostal surface electromyography. Video monitoring has been done to check for any parasomnia events. Nocturnal oxyhemoglobin saturations were obtained by finger oximetry. Step-horvath titration with positive airway pressure was utilized to control the respiratory events, if necessary. RESULTS: During the diagnostic sleep study sleep efficiency was significantly decreased to 67.9%. Latency to sleep onset was prolonged to 40.0 min. Sleep architecture showed stage NI was significantly increased to 17.5%, Delta sleep was absent 0%, REM sleep was normal 27.8%. Respiratory channel showed 0 obstructive apneas, 0 mixed apneas, 0 central apne as, 1 hypopneas with lowest oxygen level 89%. Total apnea hypopnea index was 0.2. Heart rate was in the range between 49 and 56, average 52. EMG showed 0 periodic limb movements per hour with 0 micro-arousals per hour. IMPRESSIONS: 1. No significant respiratory abnormalities have been documented during the sleep study, no significant oxygen desaturation, although on last third of the night patient was switched to recliner, which may decrease amount of abnormal respiratory events. 2. No significant periodic limb movements have been documented. Please see other impressions from consultation PLAN: 1. I will see patient for follow-up visit to discuss results of the sleep test and following plan. 2. Losing weight program. 3. Sleep hygiene with regular time in bed for at least 7-1/2 hours. 4. No driving if feeling sleepiness. Thank you very much for allowing me to participate in the management of your patient. Sincerely, Dima Ball MD, PhD, FAASM. Diplomat of [place] [employer], Sleep Medicine Board by [place] [employer] Consultant [facility] [place] cc: Blake Gutierres MD
== END 2024-07-21 05:28 | disposition home or self-care (01) ==
LOC: 3 N SLEEP 19:24
PROVIDERS: ATTEND Internal Medicine
DX: G47.33 Obstructive sleep apnea (adult) (pediatric)
CPT/HCPCS: 95810

== ENCOUNTER → 2024-08-09 | Outpatient (CLI) | payer MEDICARE, OTHER ==
[2024-08-09 10:27] VITALS: BP 126/84; PULSE 53; RESP 16; TEMP 96.9
--- NOTE | 2024-08-09 13:15 | P.PAINPG ---
PQRS Measure Charge Sheet Comment: HISTORY OF PRESENT ILLNESS: A 79 yr old female presents today with severe and chronic LBP secondary to spondylosis, scoliosis, spinal stenosis, disc bulges and facet arthropathy for evaluation s/p R RFA L4-L5/ L5-S1 in May 2022. Pt states she experienced 80 % pain relief x 18 mo s/p procedure. Pt states her pain level is 7 /10 in intensity, predominantly axial, sharp, shooting from the lower aspect of her lumbar spine to the bilateral lower extremities. Pain is provoked with standing from a sitting position or walking for periods of 15 minutes or more. Pain is relieved with medications , topicals, history of LESIs RFA in the past, ice and heat daily, physical therapy over 1 year ago, massage therapy once a month, repositioning and laying supine. Interventional procedures include LESIs, R RFA L3-L5 x2 (May 2022), BL TFESI L4- L5 x1 (Dr Browne March 2024) Medications include [place], Ibu REVIEW OF ORGAN SYSTEMS: CONSTITUTIONAL: No fevers or chills. No recent weight loss. HEENT: No visual acuity loss, eye pain, difficulties with hearing. No nosebleeds. No difficulty swallowing. RESPIRATORY: Denies any troubles with breathing or dyspnea on exertion. CARDIOVASCULAR: Denies any chest pain, palpitations, or recent heart attacks. GASTROINTESTINAL: Denies fatty food intolerance. Has change in bowel habits and gas bloat. GENITOURINARY: Denies any blood in urine. Has increased urinary frequency. NEUROLOGICAL: + numbness and tingling along the distal extremities. No seizure disorders or headaches. MUSCULOSKELETAL: + back pain SKIN: No skin cancer. No rash. PSYCHIATRIC: Denies current depression or suicidal thoughts. ENDOCRINE: Denies current thyroid disorders. Denies any blood sugar glucose intolerance. HEME/LYMPHATIC: Denies any lumps and bumps around the neck. History of deep venous thrombosis. ALLERGY/IMMUNOLOGY: No immunoglobulin therapy. No immune deficiencies. BREAST: Denies current breast lumps, pain or nipple discharge. Physical Examinations : Constitutional : Cooperative , not in acute distress . HEENT: Neck supple. No Lymphadenopathy. Normal thyroid size . Eyes no ptosis , no icterus, no photophobia . Hearing intact. Normal oropharynx. No Thrush. Respiratory : Chest clear to auscultations bilaterally. No wheezing. No rhonchi. Cardiovascular : Regular rate and rhythm , S1 / S2. No S3 . No S4. Gastrointestinal : Abdomen soft. No tenderness. Bowel sounds x 4. No organomegaly . Genitourinary : Deferred. Neurologic : Cranial nerve II to XII intact. No focal neurological deficits. Psychiatric : alert & oriented x 3. Matching mood & appropriate affect. Judgment & insight intact. Lymphatic No Lymphadenopathy. Musculoskeletal : Cervical Spine Motor strength in the deltoid and biceps: Normal right side. Normal Left side Motor strength biceps and the wrist extensors: Normal right side . Normal left side Motor strength in the triceps muscle: Normal right side. Normal left side Deep tendon reflexes: Normal at the biceps. Normal at Brachioradialis. Normal at triceps Cervical facet loading test: positive bilaterally Spurling test: positive bilaterally Neck distraction test: positive bilaterally [place] sign: positive bilaterally Lumbar spine Motor strength lower extremities ,thigh and legs 5/5 Right side , 5/5 Left side Deep tendon reflexes : Normal Knee Jerk. Normal Ankle Jerk Vertebral body tenderness over Lumbar facet Loading Test: positive Right L4-l5, L5-S1 Range of motion of the lumbar spine Flexion 30 degrees, extension 10 degrees Straight Leg Raise test: Left/ Right positive at degree Efrain test: positive right / positive left. Severe tenderness over the Sacroiliac joint on the Right / Left sides Gaenslen test: positive bilaterally Seated flexion test: positive bilaterally. Sacral spine : Severe tenderness over the Sacroiliac j oint: right side / left side Range of motion: Flexion of the lumbar spine <60 degrees Range of motion: Extension of the lumbar spine <20 degrees Gaenslen's Test positive Ger's Test positive Efrain test: positive right side / left side Thigh Thrust Test Sacral Thrust Test Imaging: MRI without contrast of the lumbar spine from 02/25/22 reviewed Assessment/ Plan : Lumbar level scoliosis, lumbar stenosis, lumbar facet arthropathy Recommendation of R RFA L4-L5, L5-S1. Risks, benefits of procedure discussed and patient verbalized understanding. Denies aspirin or anti- coagulant use or medical history of diabetes. Minimal anesthesia including Fentanyl and Versed if clinically indicated. All questions answered. I have spent greater than 50 minutes on patient care today. Dr Sorto was available by phone for the evaluation of this patient. The time was used to review the medical records including relevant urine studies and Prescription history (MAPs), review of the available imaging, evaluation and examination of the patient, coordination of care with the medical staff and if applicable refer ring physicians, as well as creation of the medical record PQRS Narrative: Smoking Status Never smoker Hx Alcohol Use (MH) Yes Home Medications: Ambulatory Orders Metoprolol Tartrate [Lopressor] 25 mg PO BID 07/19/20 Atorvastatin [Lipitor] 10 mg PO HS 04/14/22 Losartan Potassium 50 mg PO DAILY 04/14/22 hydrALAZINE HCL 50 mg PO BID 04/14/22 HYDROcodone/APAP 10-325MG [[place] 10-325] 1 tab PO BID PRN 05/13/22 HYDROcodone/APAP 5-325MG [[place] 5-325] 1 tab PO DIRECTED PRN 05/13/22 HYDROcodone/APAP 7.5-325MG [[place] 7.5-325] 1 tab PO DIRECTED PRN 05/13/22 Cholecalciferol (Vitamin D3) [Vitamin D3] 1 tab PO DAILY 08/27/23 Sertraline HCl 200 mg PO DAILY 08/27/23 Vitamin B Complex 1 tab PO DAILY 08/27/23 Zolpidem [Ambien] 5 mg PO HS PRN 08/27/23 ALPRAZolam [Xanax] 0.5 mg PO DIRECTED PRN 07/13/24 ARIPiprazole [Abilify] 10 mg PO DAILY 07/13/24 Sertraline [Zoloft] 200 mg PO DAILY 07/13/24 Controlled Substance Measures - Controlled Substance Measures Is patient prescribed a controlled substance at discharge?: No
== END ==
LOC: PNWHC3 09:49
PROVIDERS: ATTEND Specialist
DX: M05.20 Rheumatoid vasculitis with rheumatoid arthritis of unspecified site (principal); M43.16 Spondylolisthesis, lumbar region; M41.86 Other forms of scoliosis, lumbar region; M48.061 Spinal stenosis, lumbar region without neurogenic claudication; M47.816 Spondylosis without myelopathy or radiculopathy, lumbar region; Z88.2 Allergy status to sulfonamides
CPT/HCPCS: 99211

== ENCOUNTER → 2024-09-01 | Day surgery (SDC) | payer MEDICARE, OTHER ==
[~2024-09-01] MED LIST changes: -LACTATED RINGERS 1,000 ML IV SCH; -LIDOCAINE 1% (10MG/ML) FOR IV START INTRADERMA PRN; +MIDAZOLAM 2 MG/2 ML VIAL ONE; -PROPOFOL 10 MG/ML 20 ML VIAL IV ONE; +ROPIVACAINE 5MG/ML 20ML VIAL ONE; +fentaNYL (PF) 50 MCG/ML 2 ML AMP ONE; +methylPREDNISolone ACETATE 40 MG/ML 1 ML VIAL ONE
[2024-09-01 08:01] VITALS: TEMP 97.3
[2024-09-01] MEDS: IV FLUID CONTINUATION 1,000 ML IV ONE ×2 (08:15→09:16)
[2024-09-01] MEDS: LACTATED RINGERS 1,000 ML IV SCH (08:15)
--- NOTE | 2024-09-01 09:12 | P.PCN ---
Date of Procedure: 09/01/24 Procedure(s) Performed: PREOPERATIVE DIAGNOSIS: 1-Lumbar Spondylosis with Facet Arthropathy without myelopathy. 2- Lumber degenerative disc disease. POSTOPERATIVE DIAGNOSIS: 1- Lumbar Spondylosis with Facet Arthropathy without myelopathy. 2- Lumber degenerative disc disease. PROCEDURES : Right Radiofrequency thermocoagulation, L3 , L4 , L5 medial branch, with fluoroscopic guidance (fluoroscopy images in the radiology department) ( to denervate the facet joint at Right L4-5 ,and L5-S1 levels ). ANESTHESIA: Monitored anesthesia care as per anesthesia department , Moderate sedation with intravenous versed 2 mg and fentaneyl 100 mcg, and local infiltration with Ropivacaine 0.5 % . EBL: Minimal PROCEDURE INDICATION: The patient with low back pain secondary to lumbar facet arthropathy who had more than 50% relief of her pain with previous diagnostic lumbar medial branch block with bupivacaine. PROCEDURE DESCRIPTION / TECHNIQUE: The patient was seen and identified in the preoperative area. Risks, benefits, complications, including but not limited to risk of infection ,bleeding , allergic reactions to the medications and no complete pain releife , and alternatives were discussed with the patient, the patient agreed to proceed with the procedure and signed the consent. IV was started. Vital signs remained stable throughout the procedure. Patient was taken to the OR and time out was completed. The patient was placed in the prone position on the procedure table. The lumber area was prepped and draped in the usual sterile fashion. . Vital signs were closely monitored during the procedure .IV sedation was used during the procedure to decrease patients a nxiety. Using AP and then oblique fluoroscopy, the ``eye of the Bravo dog corresponding to the connection between the superior and transverse articular processes of right L3, L4, and L5 were identified, marked, and localized with 1% lidocaine. Subsequently, a [id number] ( VENOM ) radiofrequency cannula with a 10-mm active tip was advanced guided by fluoroscopy to each of the``eyes of the Bravo dog at right L3, L4, and L5. Each site then underwent sensory testing at 50 Hz and 0 to 1 volt and motor testing at 2.5 Hz and 0 to 3 volt with local stimulation, but no radicular symptoms down the legs. Thereafter each sites underwent radiofrequency thermocoagulation at 80 degrees celsius for 90 seconds after injecting 0.5 ml of PF Ropivacaine 1ml, then after the thermocoagulation done , 1 ml of the block solution containing Depo-Medrol 20 mg and 3 ml of Ropivacaine 0.5% was injected at the right L3 , L4 , and L5 , levels after negative aspiration of CSF and blood and with no paresthesias. Cannulas were retracted while injecting lidocaine 1% until the needle is out.. At the end of the procedure, the skin was cleansed and bandages were applied. COMPLICATIONS: No acute complications. DISPOSITION / PLANS: The patient was placed in a supine position and transferred to the recovery area in a stable condition for observation and was discharged from the recovery room after meeting discharge criteria. Home discharge instructions given to the patient by the staff. The patient was reexamined prior to discharge. The patient will schedule a follow up in the clinic in 2-4 weeks.
--- NOTE | 2024-09-01 09:26 | FL ---
EXAMINATION TYPE: [place] guided pain mgmt statistic DATE OF EXAM: 09/01/2024 FLUOROSCOPY Rt Lumbar Rad Freq 36sec fluoro time .[id number] DAP 3 images provided [facility], , 09/01/2024 9:24 AM
[2024-09-01 09:31] VITALS: BP 121/71; PULSE 55; RESP 16
== END ==
LOC: ORPAIN 07:36
PROVIDERS: ATTEND Specialist
DX: M47.816 Spondylosis without myelopathy or radiculopathy, lumbar region (principal); Z88.2 Allergy status to sulfonamides
CPT/HCPCS: 64635; 64636; 99152

== ENCOUNTER → 2024-09-18 | Outpatient (CLI) | payer MEDICARE, OTHER ==
[2024-09-18 10:15] VITALS: BP 133/85; PULSE 53; RESP 16
--- NOTE | 2024-09-18 15:06 | P.PAINPG ---
PQRS Measure Charge Sheet Comment: HISTORY OF PRESENT ILLNESS: A 79 yr old female presents today with severe and chronic LBP secondary to spondylosis, scoliosis, spinal stenosis, disc bulges and facet arthropathy for evaluation s/p R RFA L4-L5/ L5-S1. Pt states she experienced >50 % pain relief s/p procedure. Pt states her pain level is 4 /10 in intensity, predominantly axial, sharp, shooting from the lower aspect of her lumbar spine to the bilateral lower extremities. Pain is provoked with standing from a sitting position or walking for periods of 15 minutes or more. Pain is relieved with medications , topicals, history of LESIs, lumbar RFAs in the past, ice and heat daily, physical therapy over 1 year ago, massage therapy once a month, repositioning and laying supine. Interventional procedures include LESIs, R RFA L3-L5 x3 (May 2022, Sep 2024), BL TFESI L4-L5 x1 (Dr Browne March 2024) Medications include [place], Ibu REVIEW OF ORGAN SYSTEMS: CONSTITUTIONAL: No fevers or chills. No recent weight loss. HEENT: No visual acuity loss, eye pain, difficulties with hearing. No nosebleeds. No difficulty swallowing. RESPIRATORY: Denies any troubles with breathing or dyspnea on exertion. CARDIOVASCULAR: Denies any chest pain, palpitations, or recent heart attacks. GASTROINTESTINAL: Denies fatty food intolerance. Has change in bowel habits and gas bloat. GENITOURINARY: Denies any blood in urine. Has increased urinary frequency. NEUROLOGICAL: + numbness and tingling along the distal extremities. No seizure disorders or headaches. MUSCULOSKELETAL: + back pain SKIN: No skin cancer. No rash. PSYCHIATRIC: Denies current depression or suicidal thoughts. ENDOCRINE: Denies current thyroid disorders. Denies any blood sugar glucose intolerance. HEME/LYMPHATIC: Denies any lumps and bumps around the neck. History of deep venous thrombosis. ALLERGY/IMMUNOLOGY: No immunoglobulin therapy. No immune deficiencies. BREAST: Denies current breast lumps, pain or nipple discharge. Physical Examinations : Constitutional : Cooperative , not in acute distress . HEENT: Neck supple. No Lymphadenopathy. Normal thyroid size . Eyes no ptosis , no icterus, no photophobia . Hearing intact. Normal oropharynx. No Thrush. Respiratory : Chest clear to auscultations bilaterally. No wheezing. No rhonchi. Cardiovascular : Regular rate and rhythm , S1 / S2. No S3 . No S4. Gastrointestinal : Abdomen soft. No tenderness. Bowel sounds x 4. No organomegaly . Genitourinary : Deferred. Neurologic : Cranial nerve II to XII intact. No focal neurological deficits. Psychiatric : alert & oriented x 3. Matching mood & appropriate affect. Judgment & insight intact. Lymphatic No Lymphadenopathy. Musculoskeletal : Cervical Spine Motor strength in the deltoid and biceps: Normal right side. Normal Left side Motor strength biceps and the wrist extensors: Normal right side . Normal left side Motor strength in the triceps muscle: Normal right side. Normal left side Deep tendon reflexes: Normal at the biceps. Normal at Brachioradialis. Normal at triceps Cervical facet loading test: positive bilaterally Spurling test: positive bilaterally Neck distraction test: positive bilaterally [place] sign: positive bilaterally Lumbar spine Motor strength lower extremities ,thigh and legs 5/5 Right side , 5/5 Left side Deep tendon reflexes : Normal Knee Jerk. Normal Ankle Jerk Vertebral body tenderness over Lumbar facet Loading Test: positive Right L4-L5, L5-S1 Taut bands w twitch response over BL L1-S1 Range of motion of the lumbar spine Flexion 30 degrees, extension 10 degrees Straight Leg Raise test: Left/ Right positive at degree Efrain test: positive right / positive left. Severe tenderness over the Sacroiliac joint on the Right / Left sides Gaenslen test: positive bilaterally Seated flexion test: positive bilaterally. Sacral spine : Severe tenderness over the Sacroiliac joint: right side / left side Range of motion: Flexion of the lumbar spine <60 degrees Range of motion: Extension of the lumbar spine <20 degrees Gaenslen's Test positive Ger's Test positive Efrain test: positive right side / left side Thigh Thrust Test Sacral Thrust Test Imaging: MRI without contrast of the lumbar spine from 02/25/22 reviewed Assessment/ Plan : Lumbar level scoliosis, lumbar stenosis, lumbar facet arthropathy Recommendation of BL TPIs L1-S1 #1. Risks, benefits of procedure discussed and patient verbalized understanding. Denies aspirin or anti- coagulant use or medical history of diabetes. Diclofenac gel apply to AA BID disp 1 tube w 1 RF. Use, side effects, adverse reactions, safe storage discussed. All questions answered. I have spent greater than 50 minutes on patient care today. Dr Sorto was available by phone for the evaluation of this patient. The time was used to review the medical records including relevant urine studies and Prescription history (MAPs), review of the available imaging, evaluation and examination of the patient, coordination of care with the medical staff and if applicable referring physicians, as well as creation of the medical record PQRS Narrative: Smoking Status Never smoker Narcotic Agreement Date Signed 08/09/24 Hx Alcohol Use (MH) Yes Home Medications: Ambulatory Orders Metoprolol Tartrate [Lopressor] 25 mg PO BID 07/19/20 Atorvastatin [Lipitor] 10 mg PO HS 04/14/22 Losartan Potassium 50 mg PO DAILY 04/14/22 hydrALAZINE HCL 50 mg PO BID 04/14/22 HYDROcodone/APAP 10-325MG [[place] 10-325] 1 tab PO BID PRN 05/13/22 HYDROcodone/APAP 5-325MG [[place] 5-325] 1 tab PO DIRECTED PRN 05/13/22 HYDROcodone/APAP 7.5-325MG [[place] 7.5-325] 1 tab PO DIRECTED PRN 05/13/22 Cholecalciferol (Vitamin D3) [Vitamin D3] 1 tab PO DAILY 08/27/23 ALPRAZolam [Xanax] 0.5 mg PO DIRECTED PRN 07/13/24 ARIPiprazole [Abilify] 5 mg PO DAILY 07/13/24 Sertraline [Zoloft] 200 mg PO DAILY 07/13/24 Dicyclomine HCl 20 mg PO BID 08/31/24 Montelukast [Singulair] 10 mg PO HS 08/31/24 Controlled Substance Measures - Controlled Substance Measures Is patient prescribed a controlled substance at discharge?: No
== END ==
LOC: PNWHC3 09:52
PROVIDERS: ATTEND Specialist
DX: M41.86 Other forms of scoliosis, lumbar region (principal); M48.061 Spinal stenosis, lumbar region without neurogenic claudication; Z88.2 Allergy status to sulfonamides
CPT/HCPCS: 99211

== ENCOUNTER → 2024-10-26 | Outpatient (CLI) | payer MEDICARE, OTHER ==
[2024-10-26 18:59] LABS: HCT 38.9 % (37.2-46.3); HGB 12.6 g/dL (12.0-15.0); MCH 32.9 pg (27.0-32.0); MCHC 32.4 g/dL (32.0-37.0); MCV 101.6 FL (80.0-97.0); Mean Platelet Volume 10.4 FL (9.5-12.2); NRBC Per 100 WBC 0 X 10*3/uL (0.00-0.01); Platelet Count 149 X 10*3/uL (140-440); RBC 3.83 X 10*6/uL (4.10-5.20); RDW 12.6 % (11.5-14.5); WBC 7.58 X 10*3/uL (4.50-10.00)
[2024-10-26 19:21] LABS: Blood Urea Nitrogen 14.8 mg/dL (9.0-27.0); Carbon Dioxide 26.2 mmol/L (21.6-31.8); Chloride 106 mmol/L (96-109); Potassium 4.3 mmol/L (3.5-5.5); Sodium 141 mmol/L (135-145)
== END | disposition home or self-care (01) ==
LOC: LABPAT 14:49
PROVIDERS: ATTEND Internal Medicine Interventional Cardiology
DX: Z01.818 Encounter for other preprocedural examination (principal); R94.39 Abnormal result of other cardiovascular function study; R07.89 Other chest pain
CPT/HCPCS: 36415; 80051; 82565; 84520; 85027

== ENCOUNTER 2024-10-27 08:23 | Day surgery (SDC) | payer MEDICARE, OTHER ==
[~2024-10-27 08:23] MED LIST changes: +ALPRAZolam 0.25 MG TAB PO PRN; +ALPRAZolam 0.5 MG TAB PO PRN; +ASPIRIN 325 MG TAB PO STA; -MIDAZOLAM 2 MG/2 ML VIAL ONE; +NITROGLYCERIN SL TABS 0.4 MG TAB SUBLINGUAL PRN; -ROPIVACAINE 5MG/ML 20ML VIAL ONE; -fentaNYL (PF) 50 MCG/ML 2 ML AMP ONE; -methylPREDNISolone ACETATE 40 MG/ML 1 ML VIAL ONE
[2024-10-27] MEDS: SODIUM CHLORIDE 0.9% 1,000 ML in EMPTY BAG 1 BAG IV SCH (08:43)
[2024-10-27 08:45] VITALS: RESP 18; TEMP 97.2
[2024-10-27] MEDS: IV FLUID CONTINUATION 1,000 ML IV ONE (08:45)
[2024-10-27 08:59] LABS: Basophils # (A) 0.1 k/uL (0-0.2); Basophils % (A) 1 %; Eosinophils # (A) 0.3 k/uL (0-0.7); Eosinophils % (A) 4 %; HCT 40.8 % (34.0-46.0); HGB 13.7 gm/dL (11.4-16.0); Lymphocytes # (A) 1.8 k/uL (1.0-4.8); Lymphocytes % (A) 27 %; MCH 33.9 pg (25.0-35.0); MCHC 33.7 g/dL (31.0-37.0); MCV 100.5 fL (80.0-100.0); Monocytes # (A) 0.4 k/uL (0-1.0); Monocytes % (A) 6 %; Neutrophils # (A) 4.1 k/uL (1.3-7.7); Neutrophils % (A) 61 %; Platelet Count 151 k/uL (150-450); RBC 4.06 m/uL (3.80-5.40); RDW 12.3 % (11.5-15.5); WBC 6.8 k/uL (3.8-10.6)
[2024-10-27 09:24] LABS: African American GFR (CKD) 87 (>60 ml/min/1.73 sqM); Anion Gap 6 mmol/L; Blood Urea Nitrogen 15 mg/dL (7-17); Calcium 9.1 mg/dL (8.4-10.2); Carbon Dioxide 27 mmol/L (22-30); Chloride 106 mmol/L (98-107); Glucose 85 mg/dL (74-99); Non-African American GFR(CKD) 76 (>60 ml/min/1.73 sqM); Potassium 4.1 mmol/L (3.5-5.1); Sodium 139 mmol/L (137-145)
[2024-10-27] MEDS: MIDAZOLAM 2 MG/2 ML VIAL IVP ONE (10:42)
[2024-10-27] MEDS: LIDOCAINE 1% INJ 10MG/ML (20 ML MDV) SQ ONE (10:45)
[2024-10-27] MEDS: VERAPAMIL SYRINGE (5 MG/10 ML) INTRAARTER ONE (10:50)
[2024-10-27] MEDS: HEPARIN SODIUM 1,000 UN/ML (10ML VL) IV ONE (10:55)
[2024-10-27] MEDS: HYDROmorphone 0.5 MG/0.5 ML SYRINGE IVP ONE (10:58)
[2024-10-27] MEDS: HEPARIN SODIUM,PORCINE (1 ML) 2,500 UNIT in SODIUM CHLORIDE 0.9% 250 ML IRRIGATION PRN (10:59)
[2024-10-27] MEDS: HEPARIN SODIUM,PORCINE 10,000 UNIT in SODIUM CHLORIDE 0.9% 1,000 ML IRRIGATION PRN (10:59)
[2024-10-27] MEDS: SODIUM CHLORIDE 0.9% 1,000 ML IV ONE (10:59)
[2024-10-27] MEDS: NITROGLYCERIN 1000MCG/10ML SYRINGE INTRAARTER ONE (11:02)
[2024-10-27] MEDS: NITROGLYCERIN 1000MCG/10ML SYRINGE INTRACORON ONE (11:02)
[2024-10-27] MEDS: IOPAMIDOL-370 100ML BTL INJ ONE (11:04)
[2024-10-27] MEDS ORDERED: SODIUM CHLORIDE 0.9% 1,000 ML IV SCH (11:15)
--- NOTE | 2024-10-27 11:19 | P.CARDCATH ---
Date of Procedure: 10/27/24 Description of Procedure: History: This patient is 79 years of age with hypertension and hyperlipidemia has nondescript chest tightness and pressure and is going for elective knee arthroplasty. Prior to that I recommended a stress test which was abnormal with anterior reversible defect and therefore advised coronary angiography after due discussion regarding risks of benefits and options. Patient understood all details and wished to proceed with the procedure patient was referred for cardiac catheterization to evaluate for CAD. Procedure Details: The risks, benefits, complications, treatment options, and expected outcomes were discussed with the patient. The patient and/or family concurred with the proposed plan, giving informed consent. Patient was brought to the tin can laborer after IV hydration was begun and oral premedication was given. Patient was further sedated with midazolam. Patient was prepped and draped in the usual manner. Under strict aseptic precautions and local anesthesia a 6 [place] introducer was placed in the right radial artery. Using a JL 3/5 and a JR 4/0 catheters I performed coronary angiography and the same JR catheter was used to check LV pressures and LV gram was not performed. After the procedure was completed the sheaths and catheters were all removed. Hemostasis was achieved with TR band. Saturation in the fingers of the right hand was about 94%. Moderate conscious sedation time was 20 minutes. Patient's oxygen saturation hemodynamics and EKG were monitored closely. Findings: Hemodynamics: The left ventricular end-diastolic pressure was 10 mmHg without any gradient across aortic valve Left Main: Short patent vessel no significant disease bifurcates into LAD and circumflex LAD: Good caliber good distribution vessel minor irregularities no significant disease it runs all the way to the apex curves over the apex to supply the inferoapical portion. No significant disease CIRC: Nondominant vessel gives off a groove branch very proximally the origin of the groove branch has a 50 to 60% narrowing it is relatively small in distribution. The circumflex itself has minor irregularities no significant disease RCA: Dominant vessel no significant disease distally bifurcates into PDA and PLV. Minor irregularities LV: LV gram not performed Closure Device: TR band Complications: None Estimated Blood Loss: Minimal Impression: This patient has a right dominant system normal filling pressures no gradient. Small groove branch at its origin of the nondominant circumflex has a 55 to 60% narrowing. Relatively small distribution branch. No other significant disease Pre Procedure Diagnosis: Abnormal stress test with CAD Final Post Procedure Diagnosis: Single-vessel CAD Recommendation: Aggressive medical therapy with risk factor modification. Discharge later on today we will continue same medications but increase the atorvastatin to 40 mg at bedtime. Can proceed with elective knee surgery risk will be moderate to high no contraindication. Advised to continue all medications up until surgery and to resume them promptly thereafter. Complications: None; patient tolerated the procedure well. Disposition: Extended stay unit- hemodynamically stable. Condition: Stable Discharge Disposition: Discharge patient home later on today.
[2024-10-27 14:32] VITALS: BP 150/67; PULSE 54
== END 2024-10-27 14:53 | disposition home or self-care (01) ==
LOC: CATHCVL 08:23
PROVIDERS: ATTEND Internal Medicine Interventional Cardiology
DX: I25.110 Atherosclerotic heart disease of native coronary artery with unstable angina pectoris (principal); I10 Essential (primary) hypertension; E78.00 Pure hypercholesterolemia, unspecified; G47.33 Obstructive sleep apnea (adult) (pediatric); I08.3 Combined rheumatic disorders of mitral, aortic and tricuspid valves; I27.20 Pulmonary hypertension, unspecified; R00.2 Palpitations; Z79.899 Other long term (current) drug therapy
CPT/HCPCS: 93458; 80048; 85025; C1769 ×3; C1894; J2250; J1644 ×3; J2003; J1171; Q9967; J2305

== ENCOUNTER → 2024-11-07 | Outpatient (CLI) | payer MEDICARE, OTHER ==
[2024-11-07 11:47] LABS: Prothrombin Time 10.7 sec (10.0-12.5)
[2024-11-07 15:47] LABS: HCT 40.6 % (37.2-46.3); HGB 12.9 g/dL (12.0-15.0); MCHC 31.8 g/dL (32.0-37.0); MCV 103.8 FL (80.0-97.0); NRBC Per 100 WBC 0 X 10*3/uL (0.00-0.01); Platelet Count 171 X 10*3/uL (140-440); RBC 3.91 X 10*6/uL (4.10-5.20); RDW 12.4 % (11.5-14.5); WBC 6.83 X 10*3/uL (4.50-10.00)
[2024-11-07 16:00] LABS: ALT 26 U/L (8-44); AST 27 U/L (13-35); Albumin 3.9 g/dL (3.8-4.9); Albumin/Globulin Ratio 2.17 Ratio (1.60-3.17); Alkaline Phosphatase 95 U/L (41-126); BUN/Creat Ratio 20.25 Ratio (12.00-20.00); Blood Urea Nitrogen 16.2 mg/dL (9.0-27.0); Calcium 9.2 mg/dL (8.7-10.3); Carbon Dioxide 28.5 mmol/L (21.6-31.8); Chloride 105 mmol/L (96-109); Globulin 1.8 g/dL (1.6-3.3); Glucose 88 mg/dL (70-110); Potassium 4.3 mmol/L (3.5-5.5); Sodium 142 mmol/L (135-145); Total Bilirubin 0.5 mg/dL (0.3-1.2); Total Protein 5.7 g/dL (6.2-8.2)
== END | disposition home or self-care (01) ==
LOC: LABPAT 10:07
PROVIDERS: ATTEND Orthopaedic Surgery
DX: Z01.812 Encounter for preprocedural laboratory examination (principal); M17.11 Unilateral primary osteoarthritis, right knee; Z22.322 Carrier or suspected carrier of Methicillin resistant Staphylococcus aureus
CPT/HCPCS: 80053; 85027; 85610; 85730; 87070

== ENCOUNTER 2024-11-20 05:32 | Inpatient (IN) | payer MEDICARE, OTHER ==
[~2024-11-20 05:32] MED LIST changes: -ALPRAZolam 0.25 MG TAB PO PRN; -ALPRAZolam 0.5 MG TAB PO PRN; -ASPIRIN 325 MG TAB PO STA; -NITROGLYCERIN SL TABS 0.4 MG TAB SUBLINGUAL PRN; +TRANEXAMIC 1,000 MG/100ML-NACL 1,000 MG in SALINE 1 100ML.BAG IVPB PRN
[2024-11-20] MEDS ORDERED: LIDOCAINE 1% (10MG/ML) FOR IV START INTRADERMA PRN (05:48)
[2024-11-20] MEDS ORDERED: fentaNYL (PF) 50 MCG/ML 2 ML AMP IVP PRN (05:48)
[2024-11-20] MEDS ORDERED: HYDROmorphone 0.5 MG/0.5 ML SYRINGE IVP PRN ×3 (05:48→08:44)
[2024-11-20] MEDS ORDERED: MIDAZOLAM 2 MG/2 ML VIAL IV PRN (05:48)
[2024-11-20] MEDS: ACETAMINOPHEN TAB 500 MG TAB PO PRN (06:36)
[2024-11-20] MEDS: GABAPENTIN 300 MG CAP PO PRN (06:36)
[2024-11-20] MEDS: MELOXICAM 7.5 MG TAB PO PRN (06:36)
[2024-11-20] MEDS: LACTATED RINGERS 1,000 ML IV SCH (06:37)
[2024-11-20] MEDS: ONDANSETRON 4 MG/2 ML VIAL IVP ONE (06:38)
[2024-11-20] MEDS: DEXAMETHASONE SOD PHOSPHATE 4 MG/ML 1 ML VIAL IV ONE (06:38)
[2024-11-20] MEDS: MIDAZOLAM 2 MG/2 ML VIAL IVP ONE (06:43)
[2024-11-20] MEDS ORDERED: diphenhydrAMINE 50 MG/ML 1 ML VIAL ONE (06:55)
[2024-11-20] MEDS ORDERED: ROPIVACAINE 5 MG/ML 30 ML VIAL ONE (06:55)
[2024-11-20] MEDS ORDERED: PROPOFOL 10 MG/ML 20 ML VIAL IV ONE (06:55)
[2024-11-20] MEDS ORDERED: DEXAMETHASONE SOD PHOSPHATE 4 MG/ML 1 ML VIAL ONE (06:55)
[2024-11-20] MEDS ORDERED: TRANEXAMIC 1,000 MG/100ML-NACL PREMIX BAG ONE (06:55)
[2024-11-20] MEDS: ceFAZolin 1,000 MG in SODIUM CHLORIDE 0.9% 1,000 ML IRRIGATION ONE (07:00)
[2024-11-20] MEDS: IV FLUID CONTINUATION 900 ML IV ONE (07:00)
--- NOTE | 2024-11-20 08:10 | P.OP ---
Date of Procedure: 11/20/24 Preoperative Diagnosis: Severe osteoarthritis, right knee Postoperative Diagnosis: Severe osteoarthritis, right knee Procedure(s) Performed: Right total knee arthroplasty Implants: [employer]hew Journey II CR Oxinium cruciate retaining femoral component size 6, right [employer] Journey nonporous tibial baseplate size 4, right [employer] Journey II, XLPE Deep Dished articular insert, size 11 mm, Size 3-4, right [employer] Journey Naomi II resurfacing patellar component, oval, 32 mm All components were cemented using Palacos R bone cement The articulation is Oxinium on polyethylene Anesthesia: spinal Surgeon: Jeff Moya Lead Nitrate Processor #1: Chastity Celaya Estimated Blood Loss (ml): 50 Pathology: none sent Condition: stable Disposition: PACU Indications for Procedure: The patient's knee is end-stage, and conservative management has failed. The operation of knee replacement has been discussed at length in the office, as well as potential risks and complications. These are inclusive of, but not limited to: Infection, bleeding, scarring, discomfort, stiffness, blood vessel and nerve damage, need for further surgery, failure to relieve symptoms, persistence, recurrence, or worsening of problems, loosening, dislocation, wear, blood clot, pulmonary embolism, , gait dysfunction, stiffness, and other risks as discussed in the office. Patient elects to proceed and the consent form has been signed. Operative Findings: The operative findings are consistent with severe osteoarthritis of the right knee Description of Procedure: The patient was seen in the preoperative area, the consent was reviewed and the operative site was marked with a skin marker. The patient verified the procedure and the operative site. An adductor canal pain catheter and an iPACK block were placed by anesthesia in the preoperative area. The patient was then brought to the operating room and positioned on the operating room table in the supine position. Preoperative antibiotics and a gram of tranexamic acid were given intravenously. A spinal anesthetic was administered by the anesthesia department. Care was taken to make sure that all pressure points were adequately padded. A tourniquet was placed on the upper thigh and the lower extremity was prepped with ChloraPrep and draped in usual sterile fashion. A universal time-out was then performed which confirmed the patient's name, surgical site, ALLERGIES, and consent. The lower extremity was then exsanguinated and tourniquet was inflated to 250 mmHg. A standard anterior midline approach to the knee was performed. The skin and subcutaneous tissue were sharply dissected down to the patellar tendon. A medial parapatellar arthrotomy was then performed. The knee was then extended, the patellar was everted, and the knee was flexed. The infra-patellar fat pad was removed in order to enhance exposure. The anterior horns of both menisci were excised, and a release was performed to the posterior medial aspect of the knee. On gross visual inspection, there was complete loss of articular cartilage in the medial and patellofemoral joint spaces. There was also significant cartilage damage in the lateral compartment. There were multiple periarticular osteophytes globally about the knee which were then removed with a Ronguer. The femoral canal was then opened with the 9.5 mm intramedullary drill. The 8 mm intramedullary suki was then inserted into the femoral canal with the distal femoral cutting guide set for 5 of valgus. The distal femoral cutting block was then pinned in place. The intramedullary suki was then removed, and the distal femur was then cut. The cutting block was then removed and the cut was checked for symmetry. The resected bone was then measured to confirm the appropriate distal femoral resection. Next, the sizing guide was then placed and set for 3 external rotation based off of the epicondylar axis and Church[place]'s line. Pins were then placed and the drill holes, and the femur was sized with the sizing stylus. The pins were then removed, and the sizing guide was then removed. The spikes of the appropriate size femoral block was then placed into the predrilled holes, and malleted into place. Two 45 mm pins were then placed into the fixation holes on the cutting block. An abby wing was then used to ensure there would be no notching with the anterior cut. The anterior condyles were cut without notching. The anterior chord cut was then performed, followed by the posterior cut, posterior chamfer cut, and the anterio r chamfer cut. The collateral ligaments were protected during the entire process. The cutting block was then removed. Any remaining bone and osteophytes were removed from the femur with a Ronguer. Attention was then directed to the tibia. The remaining ACL was removed with a Ronguer, and the tibia was then gently subluxed forward with a large bent knee retractor. Any remaining menisci were excised. The posterior lateral corner was cauterized in order to coagulate the lateral geniculate artery. The extra medullary tibial cutting guide was then placed, set for the appropriate rotation, slope, and depth of resection. The proximal tibia cutting guide was then pinned in place. Proximal tibia was then cut and sized. A curved osteotome was then used to remove any posterior osteophytes from the distal femur. The femoral trial was placed. A narrow saw blade was then used to remove the anterior intracondylar femoral bone. The CR notch trial was then placed. The tibial trial was placed with the appropriate-sized insert. The knee was able to fully extend and flex to 130 and was stable throughout all range of motion. The knee was then extended and the patella was everted. Patella was then measured, and then using an osteotomy guide, the patella was cut at the appropriate level. The patellar component was sized. The patellar drill guide was placed and the patella was drilled. The patella trial was then placed. The knee was then taken through range of motion with the patella trial and the patella tracked normally using the no thumbs technique. The patella trial was then removed. The knee was then flexed and lug holes were drilled through the femoral trial and the femoral trial was then removed. The tibial was then re- exposed, and the tibial broach guide was then pinned in place after it was set for the appropriate rotation to allow for the most coverage without overhang. The tibia was then reamed and broached. The femoral canal was plugged with autologous bone. The cut surfaces of bone were then irrigated with pulsatile lavage. The knee was also irrigated with Irrisept solution. The components were then opened, the cement was mixed. Cement was placed on the backside of the femoral, tibial, and patellar components. Cement was then applied to the tibial surface and pressurized into the surface using finger pressurization technique. The tibial component was then applied and excess cement was removed after it was impacted securely noted to be flush with the cut surface. In similar fashion, the cement was applied to the cut femoral surface, pressurized and using finger pressurization the component was impacted in place. Excess cement was removed. The polyethylene spacer was then implanted and locked into position. Patellar component was then applied in a similar technique and the patellar clamp was used to hold patella in place while the cement hardened. The knee was held in full extension while the cement hardened. Once the cement had fully hardened, the knee was reinspected. Any other cement extrusion was removed the final range of motion testing showed range of motion from 0-130 with excellent stability, both medial and laterally and appropriate alignment of the leg. Patella tracked normally. After the cemented hardened, the tourniquet was released and hemostasis was obtained. A second gram of transexamic acid was given intravenously. The knee was again irrigated. The knee was again taken through range of motion and found to be stable throughout all range of motion of 0-130, and the patella tracked normally. The fascia was then closed with 0 Vicryl followed by #2 strata fix suture. The subcutaneous tissue was closed with 3-0 Vicryl and 3-0 monocryl. Exofin glue was used for the skin and placed with the knee in flexion. After the glue had dried, and Optafoam silver impregnated dressing was applied. A lightly compressive dressing was applied using web roll and Jorgito wrap. Patient was then transferred to the stretcher and taken to recovery room in stable condition. Sponge and needle counts were correct. The administrative assistant STEFFI Serrano was required due the complexity surgery and the need for a skilled surgical orderly. She assisted in positioning, draping, retraction, and closure of the wound.
[2024-11-20] MEDS ORDERED: MAGNESIUM HYDROXIDE 2,400 MG/30 ML CUP PO PRN (08:44)
[2024-11-20] MEDS ORDERED: bisacodyL 10 MG SUPP RECTAL PRN (08:44)
[2024-11-20] MEDS ORDERED: NALOXONE 0.4 MG/ML 1 ML VIAL IV PRN (08:44)
[2024-11-20] MEDS ORDERED: NA PHOS,M-B/NA PHOS,DI-BA 133 ML ENEMA RECTAL PRN (08:44)
[2024-11-20] MEDS ORDERED: ONDANSETRON 4 MG/2 ML VIAL IVP PRN (08:44)
--- NOTE | 2024-11-20 09:12 | XR ---
EXAMINATION TYPE: XR knee limited RT DATE OF EXAM: 11/20/2024 COMPARISON: NONE CLINICAL INDICATION: Female, 79 years old with history of Evaluation for Postop abnormality and align ment; TECHNIQUE: Two views submitted FINDINGS: There is a prosthetic knee in near anatomic alignment. There is soft tissue edema and soft tissue a ir\emphysema consistent with recent surgery faint vascular calcifications.. IMPRESSION: 1. Postoperative change. Appears in near-anatomic alignment [facility], , 11/20/2024 9:10 AM
[2024-11-20] MEDS: ROPIVACAINE 1,100 MG, SODIUM CHLORIDE 0.9% 500 ML 330 ML, EMPTY PAIN BALL 1 EACH MISCELLANE PRN (09:13)
[2024-11-20] MEDS: IV FLUID CONTINUATION 500 ML IV ONE (13:52)
[2024-11-20] MEDS ORDERED: ALPRAZolam 0.5 MG TAB PO PRN (17:24)
[2024-11-20] MEDS: HYDROcodone/APAP 7.5-325MG 1 EACH TAB PO PRN (17:56)
[2024-11-20] MEDS: SODIUM CHLORIDE 0.9% 1,000 ML IV SCH (19:09)
[2024-11-20] MEDS: hydrALAZINE HCL 50 MG TAB PO SCH (22:33)
[2024-11-20] MEDS: SENNOSIDES-DOCUSATE SODIUM 1 EACH TAB PO SCH (22:39)
[2024-11-20] MEDS: ATORVASTATIN 40 MG TAB PO SCH (22:39)
[2024-11-20] MEDS: METOPROLOL TARTRATE 25 MG TAB PO SCH (22:39)
[2024-11-20] MEDS: ASPIRIN 325 MG TAB PO SCH (22:39)
--- NOTE | 2024-11-21 04:33 | P.PN ---
Progress Note - Text Progress Note Date: 11/21/24 Patient doing well. Pain well controlled with multimodal regimen. R adductor catheter site clean and dry. A/P POD#1 s/p R TKA w/ adductor catheter - continue multimodal analgesic regimen
[2024-11-21 09:07] LABS: Basophils # (A) 0.01 X 10*3/uL (0.00-0.10); Basophils % (A) 0.1 %; Eosinophils # (A) 0 X 10*3/uL (0.04-0.35); Eosinophils % (A) 0 %; HCT 32.2 % (37.2-46.3); HGB 10.4 g/dL (12.0-15.0); Lymphocytes # (A) 0.99 X 10*3/uL (0.90-5.00); Lymphocytes % (A) 6.8 %; MCH 32.8 pg (27.0-32.0); MCHC 32.3 g/dL (32.0-37.0); MCV 101.6 FL (80.0-97.0); Mean Platelet Volume 11.2 FL (9.5-12.2); Monocytes # (A) 1.26 X 10*3/uL (0.20-1.00); Monocytes % (A) 8.6 %; NRBC Per 100 WBC 0 X 10*3/uL (0.00-0.01); Neutrophils # (A) 12.26 X 10*3/uL (1.80-7.70); Neutrophils % (A) 83.8 %; Platelet Count 130 X 10*3/uL (140-440); RBC 3.17 X 10*6/uL (4.10-5.20); WBC 14.62 X 10*3/uL (4.50-10.00)
[2024-11-21] MEDS: SERTRALINE 100 MG TAB PO SCH (09:13)
[2024-11-21] MEDS: HYDROmorphone 0.5 MG/0.5 ML SYRINGE IVP PRN (09:13)
[2024-11-21] MEDS: ARIPiprazole 5 MG TAB PO SCH (09:13)
[2024-11-21] MEDS: CHOLECALCIFEROL 125 MCG (5000 IU) TABLET PO SCH (09:13)
[2024-11-21] MEDS: LOSARTAN 50 MG TAB PO SCH (09:13)
--- NOTE | 2024-11-21 10:46 | P.PN ---
Subjective Progress Note Date: 11/21/24 This is a 79-year-old female who is status post right total knee arthroplasty. This is postoperative day #1 and patient is seen and evaluated at bedside today. Patient states that her pain is well controlled and she denies any new complaints today. Objective - Vital Signs Vital signs: Vital Signs Temp 98.2 F 11/21/24 07:00 Pulse 54 L 11/21/24 07:00 Resp 17 11/21/24 07:00 BP 145/74 11/21/24 07:00 Pulse Ox 99 11/21/24 07:00 FiO2 Intake & Output 11/20/24 11/21/24 11/21/24 18:59 06:59 18:59 Intake Total 1051 1060 Output Total 50 Balance 1001 1060 Weight 97.3 kg Intake: IV 1051 Oral 1060 Output: Estimated Blood Loss 50 Other: Voiding Method Toilet Toilet # Voids 1 4 - Exam Vital signs are stable. Patient is in no acute distress and is alert and oriented 3. Calf is soft and nontender to palpation. Dressing is clean, dry, and intact. Patient has full foot and ankle motion without pain or difficulty. Sensation intact. Neurovascular status and circulatory status are intact. - Labs CBC & Chem 7: 11/21/24 04:18 Assessment and Plan (1) Osteoarthritis of right knee Current Visit: Yes Status: Acute Code(s): M17.11 - UNILATERAL PRIMARY OSTEOARTHRITIS, RIGHT KNEE SNOMED Code(s): 152088780378056 (2) S/P total knee arthroplasty Current Visit: Yes Status: Acute Code(s): Z96.659 - PRESENCE OF UNSPECIFIED ARTIFICIAL KNEE JOINT SNOMED Code(s): 7971947070088 Plan: #1 Continue with routine postoperative care and pain control, leave dressing in place for 7 days. #2 Anticoagulation with aspirin. #3 Physical therapy today. #4 Appreciate input from internal medicine. #5 Anticipate discharge home with home care tomorrow.
[2024-11-21] MEDS: HYDROcodone/APAP 7.5-325MG 1 EACH TAB PO PRN (12:44)
[2024-11-21] MEDS: PANTOPRAZOLE 40 MG/10 ML VIAL IVP SCH (17:02)
--- NOTE | 2024-11-21 17:09 | P.CONS ---
History of Present Illness - Reason for Consult Consult date: 11/21/24 Medical management Requesting physician: Jeff Moya - Chief Complaint Osteoarthritis right knee status post - History of Present Illness This is a 79-year-old female with past medical history significant for asthma, fibromyalgia, gastroesophageal reflux disease, hypertension, hyperlipidemia, mitral valve prolapse, osteoarthritis arthritis, anxiety, depression and mul tiple other medical issues status post right total knee arthroplasty secondary to severe right knee osteoarthritis. Tolerated procedure well. Pain controlled. patient has been up ambulating, tolerating exertion well. Denies chest pain, palpitations or shortness of breath. Denies nausea or vomiting. Denies lightheadedness dizziness or focal deficits. Voiding spontaneously. Passing flatus. Review of Systems ROS Statement: Those systems with pertinent positive or pertinent negative responses have been documented in the HPI. ROS Other: All systems not noted in ROS Statement are negative. Past Medical History Past Medical History: Asthma, Cancer, Fibromyalgia, GERD/Reflux, Hearing Disorder / Deafness, Hyperlipidemia, Hypertension, Memory Impairment, Mitral Valve Prolapse (MVP), Rheumatoid Arthritis (RA) Additional Past Medical History / Comment(s): Occasional irregular heart beat, skin cancer, back pain, Hx of diverticulosis with bowel resection, uses 2L of O2 at night, hx pancreatitis, states urgency with bowel/bladder movements, varicose veins, polymyalgia, insomnia, ulcers, restless legs and body, [place] ears (lost hearing aids), short term memory impairment. History of Any Multi-Drug Resistant Organisms: None Reported Past Surgical History: Appendectomy, Bowel Resection, Cholecystectomy, Heart Catheterization, Hysterectomy, Joint Replacement, Orthopedic Surgery Additional Past Surgical History / Comment(s): BILATERAL KNEE ARTHROSCOPY X2 AND OPEN X2, LEFT TOTAL KNEE REPLACEMENT, scraped cornea, cataract surgery, gastric resection, bilateral shoulder surgery, Lt. thumb joint replaced, ruptured tendon repair Rt. hand, pain clinic procedures @ [facility], colonoscopy, heart cath 10/27/24 (no stent) Past Anesthesia/Blood Transfusion Reactions: Family History of Problems w/ Anesthesia Additional Past Anesthesia/Blood Transfusion Reaction / Comm: MOTHER - PONV. no blood transfusion Past Psychological History: Anxiety, Depression Additional Psychological History / Comment(s): "Mild depression". Smoking Status: Never smoker Past Alcohol Use History: Rare Additional Past Alcohol Use History / Comment(s): advised no alcohol 24 hrs prior to surg. Past Drug Use History: None Reported Additional Drug Use History / Comment(s): OCCASIONAL CBD OIL, "NONE IN QUITE A WHILE, DIDN'T WORK FOR ME".has not done for a year - Past Family History Mother Family Medical History: Diabetes Mellitus, GERD/Reflux, Hyperlipidemia Additional Family Medical History / Comment(s): acid reflux Father Family Medical History: Cancer, Congestive Heart Failure (CHF), GERD/Reflux, Hyperlipidemia, Hypertension, Myocardial Infarction ([place]) Additional Family Medical History / Comment(s): SKIN CANCER, angina, snoring, (brother had [place] also), Medications and Allergies Home Medications Medication Instructions Recorded Confirmed Type Metoprolol Tartrate [Lopressor] 25 mg PO BID 07/19/20 11/14/24 History Atorvastatin [Lipitor] 40 mg PO HS 04/14/22 11/14/24 History Losartan Potassium 50 mg PO DAILY 04/14/22 11/14/24 History hydrALAZINE HCL 50 mg PO BID 04/14/22 11/14/24 History HYDROcodone/APAP 10-325MG [[place] 1 tab PO BID PRN 05/13/22 11/14/24 History 10-325] Cholecalciferol (Vitamin D3) 1 tab PO DAILY 08/27/23 11/14/24 History [Vitamin D3] ALPRAZolam [Xanax] 0.5 mg PO DIRECTED PRN 07/13/24 11/14/24 History ARIPiprazole [Abilify] 5 mg PO DAILY 07/13/24 11/14/24 History Sertraline [Zoloft] 200 mg PO DAILY 07/13/24 11/14/24 History Acetaminophen Tab [Tylenol Tab] 1,000 mg PO Q6HR PRN 11/20/24 11/20/24 History Aspirin 325 mg PO BID #60 tab 11/20/24 Rx HYDROcodone/APAP 7.5-325MG [[place] 1 - 2 tab PO Q6H PRN #32 tab 11/20/24 Rx 7.5-325] Sennosides [Senokot] 2 tab PO DAILY PRN #60 tablet 11/20/24 Rx Allergies Allergy/AdvReac Type Severity Reaction Status Date / Time Sulfa (Sulfonamide Allergy Unknown Verified 11/20/24 06:02 Antibiotics) Childhood Physical Exam Vitals: Vital Signs Temp Pulse Pulse Resp BP Pulse Ox 11/21/24 07:00 98.2 F 54 L 17 145/74 99 11/21/24 02:00 97.7 F 52 L 17 147/65 95 11/20/24 19:48 97.7 F 63 16 109/65 93 L 11/20/24 17:12 97.6 F 56 L 16 158/76 95 11/20/24 16:00 59 L 18 141/64 95 11/20/24 15:30 65 18 158/69 95 11/20/24 15:00 66 18 167/67 98 11/20/24 14:30 62 18 155/71 98 11/20/24 14:00 63 18 171/69 95 11/20/24 13:30 52 L 16 143/68 93 L Intake and Output 11/20/24 11/21/24 11/21/24 22:59 06:59 14:59 Intake Total 1060 120 Balance 1060 120 Intake: Oral 1060 120 Other: Voiding Method Toilet # Voids 1 4 Weight 97.3 kg GENERAL: Pleasant 79-year-old female ,alert and oriented x 3, well-nourished, no acute distress. HEAD: Atraumatic, normocephalic. EYES: Pupils equal, round, and reactive to light, extraocular movements intact, sclera anicteric, conjunctiva are normal. ENT: Oropharynx clear without exudates. Moist mucous membranes. NECK:supple, no JVD. LUNGS: Unlabored, equal air entry, clear to auscultation. HEART: S1, S2. Regular rate and rhythm no murmurs, rubs or gallops. ABDOMEN: Soft, nondistended, nontender,+bowel sounds. No rigidity no masses appreciated. EXTREMITIES: Right knee dressing intact. no calf tenderness. Positive DP pulse NEUROLOGICAL: Cranial nerves II through XII grossly intact. Strength and sensation grossly intact. SKIN: Warm, dry, intact. Normal turgor. No rashes or lesions. Results CBC & Chem 7: 11/21/24 04:18 Labs: Abnormal Lab Results - Last 24 Hours (Table) 11/21/24 Range/Units 04:18 WBC 14.62 H (4.50-10.00) X 10*3/uL RBC 3.17 L (4.10-5.20) X 10*6/uL Hgb 10.4 L (12.0-15.0) g/dL Hct 32.2 L (37.2-46.3) % MCV 101.6 H (80.0-97.0) FL MCH 32.8 H (27.0-32.0) pg Plt Count 130 L (140-440) X 10*3/uL Immature Gran # 0.10 H (0.00-0.04) X 10*3/uL Neutrophils # 12.26 H (1.80-7.70) X 10*3/uL Monocytes # 1.26 H (0.20-1.00) X 10*3/uL Eosinophils # 0 L (0.04-0.35) X 10*3/uL Assessment and Plan Assessment: 1. Right knee osteoarthritis status post total right knee arthroplasty 2. GERD. 3. Hypertension. 4. CAD, 5. Mitral valve prolapse. 6. Anxiety and depression. Plan: Continue on current medication regimen ,monitoring and symptomatic treatment. Pain management and DVT prophylaxis as per primary. PT. aggressive pulmonary toileting with incentive spirometer reinforced. Discharge planning in progress for home. Follow-up with PCP in 1 week. Thank you for the consult. The impression and plan of care has been dictated as directed. : I performed a history and examination of this patient, discussed the same with the dictator. I agree with the dictator's note ,documented as a scribe. Any a dditional findings or plans will be noted.
[2024-11-21 21:09] VITALS: RESP 17
--- NOTE | 2024-11-22 10:30 | P.PN ---
Subjective Progress Note Date: 11/22/24 This is a 79-year-old female who is status post right total knee arthroplasty. This is postoperative day #2 and patient is seen and evaluated at bedside today. Patient states that her pain is somewhat worse today, but she was able to work with physical therapy today. Objective - Vital Signs Vital signs: Vital Signs Temp 98.1 F 11/22/24 07:05 Pulse 66 11/22/24 07:05 Resp 17 11/22/24 07:05 BP 124/70 11/22/24 07:05 Pulse Ox 95 11/22/24 07:05 FiO2 Intake & Output 11/21/24 11/22/24 11/22/24 18:59 06:59 18:59 Intake Total 390 Balance 390 Intake: Oral 390 Other: Voiding Method Toilet # Voids 2 # Bowel Movements 1 - Exam Vital signs are stable. Patient is in no acute distress and is alert and orie nted 3. Calf is soft and nontender to palpation. Dressing is clean, dry, and intact. Patient has full foot and ankle motion without pain or difficulty. Sensation intact. Neurovascular status and circulatory status are intact. - Labs CBC & Chem 7: 11/21/24 04:18 Assessment and Plan (1) Osteoarthritis of right knee Current Visit: Yes Status: Acute Code(s): M17.11 - UNILATERAL PRIMARY OSTEOARTHRITIS, RIGHT KNEE SNOMED Code(s): 927861252127776 (2) S/P total knee arthroplasty Current Visit: Yes Status: Acute Code(s): Z96.659 - PRESENCE OF UNSPECIFIED ARTIFICIAL KNEE JOINT SNOMED Code(s): 3202960792077 Plan: #1 Continue with routine postoperative care and pain control, leave dressing in place for 7 days. #2 Anticoagulation with aspirin. #3 Physical therapy today. #4 Appreciate input from internal medicine. #5 Patient's medications were adjusted for better pain control with anticipation for discharge home with home care tomorrow.
[2024-11-22] MEDS: KETOROLAC 15 MG/ML 1 ML VIAL IVP PRN (10:47)
[2024-11-23 08:14] VITALS: BP 131/80; PULSE 64; TEMP 98.1
[2024-11-23 09:20] LABS: HCT 28.5 % (37.2-46.3); HGB 9.4 g/dL (12.0-15.0); MCH 33.6 pg (27.0-32.0); MCV 101.8 FL (80.0-97.0); Mean Platelet Volume 10.6 FL (9.5-12.2); NRBC Per 100 WBC 0 X 10*3/uL (0.00-0.01); Platelet Count 112 X 10*3/uL (140-440); RDW 12.6 % (11.5-14.5); WBC 9.17 X 10*3/uL (4.50-10.00)
[2024-11-23 09:21] LABS: Basophils # (A) 0.03 X 10*3/uL (0.00-0.10); Basophils % (A) 0.3 %; Eosinophils # (A) 0.12 X 10*3/uL (0.04-0.35); Eosinophils % (A) 1.3 %; Lymphocytes # (A) 1.43 X 10*3/uL (0.90-5.00); Lymphocytes % (A) 15.6 %; Monocytes # (A) 0.98 X 10*3/uL (0.20-1.00); Monocytes % (A) 10.7 %; Neutrophils # (A) 6.56 X 10*3/uL (1.80-7.70); Neutrophils % (A) 71.6 %
--- NOTE | 2024-11-23 10:32 | P.DS ---
Providers Date of admission: 11/22/24 11:33 Expected date of discharge: 11/23/24 Attending physician: Jeff Moya Consults: 11/20/24 08:44 Consult Physician Routine Consulting Provider: Blake Gutierres Consult Reason/Comments: medical management Do you want consulting provider notified?: Yes Primary care physician: Blake Gutierres - Discharge Diagnosis(es) (1) Osteoarthritis of right knee Current Visit: Yes Status: Acute (2) S/P total knee arthroplasty Current Visit: Yes Status: Acute Hospital Course: This is a 79-year-old female with known history of degenerative arthritis of the right knee. The patient presented for evaluation as an outpatient. After discussion and consideration patient elects to proceed with total knee arthroplasty. The patient is seen preoperatively by Dr. Moya and medically cleared for surgery by their primary care physician. Patient is admitted to [facility] on 11/20/2024 for total knee arthroplasty. The procedure is performed without complication or sequelae. The patient is doing well postoperatively. Labs and vital signs are stable on day of discharge. On day of discharge patient's knee incision is healing well. There is minimal erythema. There is no drainage noted at this time. There is minimal soft tissue swelling to the knee. Patient has full foot and ankle motion without difficulty or pain. Calf is soft and nontender to palpation. Neurovascular status to the right lower extremity is intact. Patient is discharged home in good condition. Please see med rec for accurate list of home medications. Plan - Discharge Summary Discharge Rx Participant: Yes New Discharge Prescriptions: New HYDROcodone/APAP 7.5-325MG [[place] 7.5-325] 1 - 2 tab PO Q6H PRN #32 tab PRN Reason: Pain Sennosides [Senokot] 2 tab PO DAILY PRN #60 tablet PRN Reason: Constipation Aspirin 325 mg PO BID #60 tab Ketorolac [Toradol] 10 mg PO Q6HR #12 tab No Action Metoprolol Tartrate [Lopressor] 25 mg PO BID HYDROcodone/APAP 10-325MG [[place] 10-325] 1 tab PO BID PRN PRN Reason: Pain Cholecalciferol (Vitamin D3) [Vitamin D3] 1 tab PO DAILY Sertraline [Zoloft] 200 mg PO DAILY ARIPiprazole [Abilify] 5 mg PO DAILY Acetaminophen Tab [Tylenol Tab] 1,000 mg PO Q6HR PRN PRN Reason: Pain Atorvastatin [Lipitor] 40 mg PO HS hydrALAZINE HCL 50 mg PO BID Losartan Potassium 50 mg PO DAILY ALPRAZolam [Xanax] 0.5 mg PO DIRECTED PRN PRN Reason: Anxiety Discharge Medication List Metoprolol Tartrate [Lopressor] 25 mg PO BID 07/19/20 [History] Atorvastatin [Lipitor] 40 mg PO HS 04/14/22 [History] Losartan Potassium 50 mg PO DAILY 04/14/22 [History] hydrALAZINE HCL 50 mg PO BID 04/14/22 [History] HYDROcodone/APAP 10-325MG [[place] 10-325] 1 tab PO BID PRN 05/13/22 [History] Cholecalciferol (Vitamin D3) [Vitamin D3] 1 tab PO DAILY 08/27/23 [History] ALPRAZolam [Xanax] 0.5 mg PO DIRECTED PRN 07/13/24 [History] ARIPiprazole [Abilify] 5 mg PO DAILY 07/13/24 [History] Sertraline [Zoloft] 200 mg PO DAILY 07/13/24 [History] Acetaminophen Tab [Tylenol Tab] 1,000 mg PO Q6HR PRN 11/20/24 [History] Aspirin 325 mg PO BID #60 tab 11/20/24 [Rx] HYDROcodone/APAP 7.5-325MG [[place] 7.5-325] 1 - 2 tab PO Q6H PRN #32 tab 11/20/24 [Rx] Sennosides [Senokot] 2 tab PO DAILY PRN #60 tablet 11/20/24 [Rx] Ketorolac [Toradol] 10 mg PO Q6HR #12 tab 11/22/24 [Rx] Follow up Appointment(s)/Referral(s): Wallace Lynn Jr, DO [Doctor of Osteopathic Medicine] - 1 Week Jeff Moya DO [Doctor of Osteopathic Medicine] - 12/06/24 1:20 pm Activity/Diet/Wound Care/Special Instructions: Weightbearing as tolerated with a walker. Leave dressing intact. Dressing may be removed by home care nurse or by patient in 7 days. Then change dressing twice daily until follow up. May shower with initial dressing intact and after removal. If dressing become saturated, please remove. Recommend use of compression stockings daily until follow up to help prevent swelling and blood clots. May remove at night before sleeping. Please take aspirin 325mg twice daily for 30 days to prevent blood clots. Please follow up with [facility] and call with any questions or concerns, . Discharge Disposition: HOME WITH HOME HEALTH SERVICES
--- NOTE | 2024-11-23 12:34 | P.ANPRN ---
Procedure Note - Anesthesia - Nerve Block Performed Right Adductor Canal Infusion Time Out Performed: Yes Date of Procedure: 11/20/24 Procedure Start Time: 06:42 Procedure Stop Time: 06:50 Location of Patient: PreOp Indication: Acute Post-Operative Pain, Requested by Surgeon Sedation Type: Sedate with meaningful contact maintained Preparation: Sterile Prep, Sterile Dressing Position: Supine Catheter: Indwelling Needle Types: Pajunk Needle Gauge: 21 Ultrasound used to visualize needle placement: Yes Ultrasound used to observe medication spread: Yes Blood Aspirated: No Pain Paresthesia on Injection Noted: No Resistance on Injection: Normal Image Stored and Saved: Yes Events: Uneventful and Well Tolerated (Ropivacaine 0.5% 20 cc plus dexamethasone 4 mg)
--- NOTE | 2024-11-23 12:35 | P.ANPRN ---
Procedure Note - Anesthesia - Nerve Block Performed Right [place] Single Time Out Performed: Yes Date of Procedure: 11/20/24 Procedure Start Time: 06:51 Procedure Stop Time: 06:53 Location of Patient: PreOp Indication: Acute Post-Operative Pain, Requested by Surgeon Sedation Type: Sedate with meaningful contact maintained Preparation: Sterile Prep Position: Supine Needle Types: Pajunk Needle Gauge: 21 Ultrasound used to visualize needle placement: Yes Ultrasound used to observe medication spread: Yes Blood Aspirated: No Pain Paresthesia on Injection Noted: No Resistance on Injection: Normal Image Stored and Saved: Yes Events: Uneventful and Well Tolerated (Ropivacaine 0.5% 20 cc was dexamethasone 4 mg)
== END 2024-11-23 13:32 | disposition home health service (06) | DRG 470 ==
LOC: OR 05:32 → 4SSUR 08:40 → OR 11-22 11:33 → 4SSUR 11-22 11:33
PROVIDERS: ADMIT Orthopaedic Surgery; ATTEND Orthopaedic Surgery
PROC: 0SRC069 Replacement of Right Knee Joint with Oxidized Zirconium on Polyethylene Synthetic Substitute, Cemented, Open Approach (ICD-10-PCS; principal; 2024-11-20 07:00)
PROC: 3E0T3BZ Introduction of Anesthetic Agent into Peripheral Nerves and Plexi, Percutaneous Approach (ICD-10-PCS; 2024-11-23)
PROC: 3E0T33Z Introduction of Anti-inflammatory into Peripheral Nerves and Plexi, Percutaneous Approach (ICD-10-PCS; 2024-11-23)
DX: M17.11 Unilateral primary osteoarthritis, right knee (principal); Q78.4 Enchondromatosis; F32.A Depression, unspecified; I10 Essential (primary) hypertension; I34.1 Nonrheumatic mitral (valve) prolapse; M21.162 Varus deformity, not elsewhere classified, left knee; M25.761 Osteophyte, right knee; F41.9 Anxiety disorder, unspecified; I25.10 Atherosclerotic heart disease of native coronary artery without angina pectoris; K21.9 Gastro-esophageal reflux disease without esophagitis; H91.93 Unspecified hearing loss, bilateral; Z96.692 Finger-joint replacement of left hand; Z96.652 Presence of left artificial knee joint; Z79.899 Other long term (current) drug therapy; Z79.82 Long term (current) use of aspirin; Z85.828 Personal history of other malignant neoplasm of skin
CPT/HCPCS: 64448; 64999; 85025